=== PATIENT | female | born 1940 | race Caucasian/White ===

== ENCOUNTER 2016-11-29 13:51 | Emergency (ER) | payer OTHER, MEDICARE ==
[~2016-11-29 13:51] MED LIST: LEVOXYL50 MCG PO
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
[2016-11-29 15:26] VITALS: BP 113/61
== END 2016-11-29 15:28 ==
LOC: ERH 13:51
DX: S32.020A Wedge compression fracture of second lumbar vertebra, initial encounter for closed fracture (principal); J18.9 Pneumonia, unspecified organism; V43.62XA Car passenger injured in collision with other type car in traffic accident, initial encounter; Y93.9 Activity, unspecified; Y92.488 Other paved roadways as the place of occurrence of the external cause
CPT/HCPCS: 72080

== ENCOUNTER → 2017-09-02 | Day surgery (SDC) | payer OTHER, MEDICARE ==
[~2017-09-02] VITALS: Ht 154.9 cm; Wt 44.9 kg
[~2017-09-02] MED LIST changes: +BIO D MULSION FORTE OU; +COLACE100 M1 PO; +DIVALPROEX SOD250 M2 PO; +DUREZOL5 ML OU; +GOLYTELY SOLU4000 ML PO; +LACTULOSE20 GM/30 M PO; +LEVOTHYROXINE100 MC1 PO; +LEVOXYL88 MCG PO; +LINZESS290 MC1 PO; +MIRALAX17 G1 PO; +MIRTAZAPINE15 M2 PO; +OLANZAPINE5 M2 PO; +QUETIAPINE FUMA25 M1 PO; +SENNA8.6 M3 PO; +VITAMIN B-1250 MG PO; +VITAMIN B-650 M2 PO; +VITAMIN C500 M7 PO; +XALATAN2.5 ML OU; +XARELTO20 M2 PO; +ZYMAXID2.5 ML OU; +[UNRECOGNIZED DRUG - OTHER] PO
--- NOTE | 2017-09-02 13:59 | Operative Report ---
Operative/Inv Procedure Report Surgery Date: 09/02/17 Name of Procedure: Cataract extraction with intraocular lens implantation right eye Pre-Operative Diagnosis: Age-related cataract right eye Post-Operative Diagnosis: Same Estimated Blood Loss: none Surgeon/Health Club Manager: Ricky MYERS,Santiago Shannon Anesthesia: local monitored anesthesi Complications: None Operative/Procedure Note Note: Preoperatively the patient was noted to have 20/80 vision in the right eye . The risks, benefits, and alternatives to surgery were discussed at length with the patient. Informed consent was obtained. The patient was brought to the operating room where the right eye was prepped and draped in the normal sterile fashion. A speculum was placed on the right eye with good exposure. A stab incision was made using a paracentesis blade. Intracameral lidocaine was placed. Viscoelastic was used to form the anterior chamber. A clear corneal incision was made using keratome blade. A continuous curvilinear capsulorrhexis was made using a cystotome needle followed by Utrata forceps. There was no extension of the rhexis. Hydrodissection was performed using balanced salt solution. The cataract was removed using a stop and chop technique. Residual cortex was removed using coaxial irrigation and aspiration. The capsule was polished using irrigation and aspiration and the posterior capsule was cleaned using a balanced salt solution jet. There was no residual lens material inside the eye. The capsular bag was reformed using viscoelastic. An intraocular lens [id number] of power 12.5 was verified and confirmed. It was loaded into an injector and injected into the eye. The lens was placed entirely within the capsular bag. Viscoelastic was evacuated using irrigation and aspiration. The wounds were stromally hydrated and the eye filled to physiologic pressure using balanced salt solution. Intracameral cefuroxime was placed. Speculum was removed and a shield was placed on the eye. The patient was brought to the recovery area without incident. Instructions were given to follow-up the next day for routine postoperative care.
== END ==
LOC: STS 02:14
DX: H25.9 Unspecified age-related cataract (principal); E03.9 Hypothyroidism, unspecified; Z96.641 Presence of right artificial hip joint; Z79.01 Long term (current) use of anticoagulants
CPT/HCPCS: J2250; V2632

== ENCOUNTER 2017-09-03 16:20 | Inpatient (IN) | payer OTHER, MEDICARE ==
[~2017-09-03] VITALS: Ht 154.9 cm; Wt 43.1 kg
[~2017-09-03 16:20] MED LIST changes: -DUREZOL5 ML OU; -LEVOXYL88 MCG PO; -LINZESS290 MC1 PO; -MIRTAZAPINE15 M2 PO; -OLANZAPINE5 M2 PO; -XALATAN2.5 ML OU; -ZYMAXID2.5 ML OU
[2017-09-03] MEDS ORDERED: OLANZAPINE5 M2 PO (17:53)
[2017-09-03] MEDS ORDERED: LEVOXYL88 MCG PO (17:53)
[2017-09-03] MEDS ORDERED: MIRTAZAPINE15 M2 PO (17:54)
[2017-09-03] MEDS ORDERED: LINZESS290 MC1 PO (17:55)
[2017-09-03] MEDS ORDERED: XALATAN2.5 ML OU (17:55)
[2017-09-03] MEDS ORDERED: ZYMAXID2.5 ML OU (17:56)
[2017-09-03] MEDS ORDERED: DUREZOL5 ML OU (17:57)
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
--- NOTE | 2017-09-03 19:05 | RADIOLOGY REPORT ---
EXAMINATION: XR PORTABLE CHEST CLINICAL INFORMATION: Altered mental status. COMPARISON: Chest x-ray 05/07/2017 TECHNIQUE: Portable frontal view of the chest was obtained. 6:35 PM FINDINGS: Previously noted few small calcified nodules in the lungs consistent with granulomas again demonstrated. There is no acute abnormality. Lungs are clear. No pulmonary vascular congestion. There is no pleural effusion. The heart size is normal. The cardiac and mediastinal contours are normal. There are calcifications of the thoracic aorta. No acute osseous abnormality IMPRESSION: Unremarkable examination.
--- NOTE | 2017-09-03 19:16 | CT SCAN REPORT ---
EXAMINATION: CT HEAD WITHOUT CONTRAST CLINICAL INFORMATION: ICH. Mass. Altered metal status. COMPARISON: Brain MRI 05/12/2017. TECHNIQUE: Contiguous axial imaging was performed from the skull base to vertex without intravenous administration of contrast. DLP: 522 mGy-cm. FINDINGS: There is no intracranial hemorrhage, large infarction, or mass lesion. There is no extra-axial collection. There is severe confluent hypoattenuation in the bilateral cerebral white matter and within the central bo likely reflecting small vessel ischemic changes. There are chronic bilateral basal ganglia and thalamic lacunar infarcts. The paranasal sinuses are clear. The mastoids and middle ear cavities are clear. There are atherosclerotic calcification of the carotid siphons and vertebral arteries. There are staphylomas bilaterally as can be seen with high axial myopia. IMPRESSION: 1. No intracranial hemorrhage, large infarction, mass lesion or hydrocephalus. 2. Severe small vessel ischemic changes. 3. Old bilateral basal ganglia and thalamic lacunar infarcts.
[2017-09-03 19:56] LABS: ABSOLUTE BASOPHIL COUNT 0.1 /CUMM (0.0-0.2); ABSOLUTE EOSINOPHIL COUNT 0.2 /CUMM (0.0-0.7); ABSOLUTE GRANULOCYTE CT 5.1 /CUMM (1.4-6.5); ABSOLUTE LYMPH COUNT 2.5 /CUMM (1.2-3.4); ABSOLUTE MONOCYTE COUNT 0.7 /CUMM (0.10-0.60); BASOPHIL % 0.6 % (0.0-2.0); GRANULOCYTE % 59.9 % (42.2-75.2); HEMATOCRIT 36.8 % (37-47); MEAN CORPUSCULAR HGB 28.6 PG (27.0-31.0); MEAN CORPUSCULAR HGB CONC 33.5 G/DL (33.0-37.0); MEAN CORPUSCULAR VOLUME 85.1 FL (81.0-99.0); PLATELET COUNT 362 /CUMM (130-400); RBC DISTRIBUTION WIDTH 13.9 % (11.5-14.5); RED BLOOD CELL CT 4.33 /CUMM (4.20-5.40); WHITE BLOOD CELL COUNT 8.5 /CUMM (4.8-10.8)
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
--- NOTE | 2017-09-04 04:53 | RADIOLOGY REPORT ---
EXAMINATION: XR HAND, RIGHT CLINICAL INFORMATION: Right hand ecchymosis COMPARISON: 04/14/2010 TECHNIQUE: PA, lateral, and oblique views of the right hand. FINDINGS: No acute fracture or dislocation. Severe degenerative changes are seen at the first carpometacarpal joint with joint space narrowing, sclerosis, and osteophyte formation. Mild degenerative changes throughout the interphalangeal joints, particularly at the fifth digit distal interphalangeal joint. These findings have progressed since the previous study. IMPRESSION: No acute osseous abnormality. Degenerative changes, most severe at the first carpometacarpal joint.
--- NOTE | 2017-09-04 12:00 | ED PSYCH CRISIS CONSULTATION ---
See Addendum Crisis Consult Basic Assessment Date of Consult: 09/04/17 Responsible Person/Accompanied By: Brought in by her Maciel Culver Insurance Authorization: Insurance #1: Insurance name: MEDICARE A Policy number: [id number] ED Provider: Patient's ED Provider: Sravan Hall Primary Care Physician: Patient's PCP: Nicki MYERS,Mike Centeno PCP's Current Psychiatrist: Dr. Tito Sam MD ([facility]) [place], [place] Chief Complaint: Altered Mental Status Patient's Quote: "I felt like I couldnt put a sentence together." Present Illness: Patient is a 77 year female who was brought in to [facility] emergency department by her with complaints of constipation, verbal unresponsiveness, altered mental status, increased anxiety, and noncompliance with medical / psychiatric treatment. reports patient refused to allow him to administer post-surgical eye drops (she underwent cataract removal a few days ago.) Also, patient's reports she locked herself into a bedroom and might have either frozen in a panic response or been physically unable to open the door. Patient and her indicate she does not have a significant psychiatric history. Patient's son at age 19 from a motorcycle accident. Patient does report an episode ~1994 where she experienced delirium but attributes that to her Synthroid thyroid medication. Patient also had altered mental status in April 2017 when she had delusions, verbal aggression, and paranoia. One psychotic theme at this time was related to her food with patient concerned food was infected. Patient had tried a diet of only fruits and vegetables for weeks and when brought to the hospital had hyponatremia. Consulting [place] psychiatric [employer] assessed patient with unspecified bipolar disorder, "delirium due to hyponatremia, acute, agitated" and a rule-out for "unspecified neurocognitive disorder." Patient was transferred and admitted for inpatient geripsychiatry at [facility]. While she was inpatient, she suffered a fall and broke her hip. Patient subsequently went to [facility] for surgery and [facility]. Now, patient is ambulatory without assistance. Patient's reports for the past month, patient has been "crying everyday on the couch." Also, reports patient sometimes freezes and becomes unresponsive. There appears to be no significant stressors or life events which precipitated this. Patient has the support of her daughter and has a grandson as well as 13 great-grandchildren. Patient was referred to see a psychiatrist by her primary care physician Dr. Caceres. Patient sought treatment with [facility] with psychiatrist Dr. Sam. This song writer spoke to Dr. Sam by phone. Dr. Sam reports he prescribed Remeron but discontinued it due to lack of therapeutic effect. Patient was then prescribed Zyprexa but patient and report she only took ~[address] Sam states his "suspicion is she is psychotic." Dr. Sam is recommending further evaluation and an inpatient geripsychiatric admission. Dr. Sam reports he has concerns patient is not eating properly and may have insomnia. Patient's observed patient is more verbal today. A glass or mirror inspector attempted to evaluate last night but patient was not able to respond to questions. Today, patient presents alert and oriented to person, situation and time. Patient states she felt "like I cant put together a sentence." Her asserts her psychotropic medication may have been contributing to her presentation. Patient also stated feeling depersonalized "I felt like the world was over there...and I was here." Patient indicates feeling paralyzed stating "I was aware I couldn't make the body do what the mind wanted to do." Patient reports feeling anxious and experiencing panic attacks referring to "panicky things." Patient indicated experiencing suicidal ideation stating " I was thinking of getting rid of myself." Patient denies any specific past intent or plan and there is no history of past suicide attempts. Patient asserts she refused to take her post-operative eye drop medication because she was concerned about the protocol and whether she would be administering it correctly. Her asserts they saw the extension service specialist in charge yesterday and received clear instructions. Her reports it has been difficult to encourage patient to attend to basic activities of daily living stating "I cant get her to do anything." Patient's urine toxicology screening is only positive for benzodiazepines. Patient was medically cleared by attending ED physician Dr. Coleman. Patient's Address: [address] [place] [address] Who Do You Live With? Spouse Family/Informants Interviewed: - Maciel Culver Allergies - Coded Allergies: NO KNOWN ALLERGIES (06/04/13) Current Medications - Scheduled Medications Difluprednate (Durezol) 0.05 % DROPS 1 GTT OU 4XDAILY BOTH EYES #5 (Reported) Entered as Reported by Ngoc Vyas on 09/03/171756 Gatifloxacin (Zymaxid) 0.5 % DROPS 1 GTT OU 4 TIMES/DAY BOTH EYES #2 ( Reported) Entered as Reported by Ngoc Vyas on 09/03/171755 Latanoprost (Xalatan) 0.005 % DROPS 1 GTT OU QPM BOTH EYES #2 (Reported) Entered as Reported by Ngoc Vyas on 09/03/171754 Levothyroxine Sodium (Levoxyl) 88 MCG TABLET 1 TAB PO DAILY THYROID #30 ( Reported) Entered as Reported by Ngoc Vyas on 09/03/17 175 Levothyroxine Sodium 100 MCG TABLET 1 TAB PO DAILY THYROID #30 CAP Prescribed by Jonas Carranza MD on 07/01/17 Linaclotide (Linzess) 290 MCG CAPSULE 1 CAP PO DAILY GI (Reported) Entered as Reported by Ngoc Vyas on 09/03/171754 Mirtazapine 15 MG TABLET 1 TAB PO QPM ANXIETY/SLEEP #30 (Reported) Entered as Reported by Ngoc Vyas on 09/03/17 175 Olanzapine 5 MG TABLET 1 TAB PO BID MENTAL HEALTH #60 (Reported) Entered as Reported by Ngoc Vyas on 09/03/171752 Polyethylene Glycol 3350 (Miralax) 17 GRAM POWD.PACK 1 PAC PO DAILY CONSTIPATION #2 PAC Prescribed by Jonas Carranza MD on 07/01/17 Last Taken: At an unknown date and time Pyridoxine HCl (Vitamin B-6) 50 MG TABLET 1 TAB PO DAILY SUPPLEMENT (Reported ) Entered as Reported by Ngoc Vyas on 05/06/172306 Last Taken: At an unknown date and time Rivaroxaban (Xarelto) 20 MG TABLET 1 TAB PO QPM DVT #30 TAB (Reported) Entered as Reported by Cali Farooq on 06/30/17227 Sennosides (Senna) 8.6 MG TABLET 2 TAB PO BID constipation #100 CAP Prescribed by Jonas Carranza MD on 07/01/17 Last Taken: At an unknown date and time Thiamine HCl (Vitamin B-1) (Unknown Strength) TABLET (Unknown Dose) PO AD SUPPLEMENT (Reported) Entered as Reported by Ngoc Vyas on 05/06/17 1648 Last Taken: Unknown Dose at an unknown date and time Laboratory Results: Laboratory Tests 09/03/172009: Urine Opiates Screen < 100.00, Methadone Screen 44, Barbiturate Screen < 60, Ur Phencyclidine Scrn < 6.00, Amphetamines Screen < 100, U Benzodiazepines Scrn 615 H, Urine Cocaine Screen < 50, Urine Cannabis Screen < 5.00, Urine Color YEL, Urine Clarity CLEAR, Urine pH 7.5, Ur Specific [place] 1.010, Urine Protein NEG, Urine Ketones TRACE H, Urine Nitrite NEG, Urine Bilirubin NEG, Urine Urobilinogen 0.2, Ur Leukocyte Esterase TRACE H, Ur Microscopic SEDIMENT EXAMINED, Urine RBC RARE, Urine WBC 3-5 H, Ur Epithelial Cells FEW, Urine Bacteria FEW H, Hyaline Casts RARE H, Urine Mucus RARE, Urine Hemoglobin NEG, Urine Glucose NEG 09/03/171944: Anion Gap 15, Estimated GFR > 60, BUN/Creatinine Ratio 23.3, Glucose 90, Calcium 10.1, Total Bilirubin 0.3, AST 22, ALT 34, Alkaline Phosphatase 107, Troponin I 0.01, Total Protein 6.8, Albumin 4.1, Globulin 2.7, Albumin/Globulin Ratio 1.5, TSH &T3 &Free T4 Intrp 1.550, CBC w Diff NO MAN DIFF REQ, RBC 4.33, MCV 85.1, MCH 28.6, RDW 13.9, MPV 7.0 L, Gran % 59.9, Lymphocytes % 29.5, Monocytes % 8.0 , Eosinophils % 2.0, Basophils % 0.6, Absolute Granulocytes 5.1, Absolute Lymphocytes 2.5, Absolute Monocytes 0.7 H, Absolute Eosinophils 0.2, Absolute Basophils 0.1, PUBS MCHC 33.5, Serum Alcohol < 10.0 Past History Past Medical History Any Pertinent Medical History? 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 Sam Aug 2017 Reason for Treatment Depression, anxiety, unspecified psychosis Dates of Treatment Jun 2017 to present Response to Treatment Unclear Diagnosis by History: None Substance Use/Abuse History Drug Use/Abuse Substances Used/Abused No First Use - Last Used - How much used/taken - How often - For how long - Route of use - Substance Abuse Treatment Substance Abuse Treatment Past Substance Abuse [place] No Inpatient Treatment No Outpatient Treatment No Location of Treatment - Dates of Treatment - Response to Treatment - Comments: - Current Mental Status Mental Status Orientation: Person, Place, Situation Affect: Depressed, Flat, Sad Speech: Delayed, Soft Neuro-vegetative: Anhedonia, Loss of Interest Appearance Appearance- Dress/Hygiene: Patient was observed to be seated in room chair with hospital attire and sneaker shoes. No remarkable features observed. Hair is well-kempt and no other grooming / hygiene issues evident. Behaviors Thought Process: Logical/Rational Thought Content: WNL Memory: WNL Insight: Fair SI/HI Risk Assessment Past Suicidal Ideation/Attempts Yes Current Suicidal Ideation/Att Yes (suicidal ideation- no plan) Past Homicidal Ideation/Att: No Current Homicidal Ideation/Attempts No Degree of Intent: Thoughts/No Intent Danger To: Self Gravely Disabled: Inability, Lack of Insight Risk Factors: age (under 24/over 65), high anxiety/distress, SA/MH hospitalized, lack of outcome concern PTSD Checklist PTSD Done? pt unable to participate ED Management Sitter: Yes Restraints: No (Patient calm & cooperative) DSM5/PS Stressors/Medical Prob Diagnosis' (DSM 5, Stressors, Medical): F05 Delirium due to another medical condition F32.9 Unspecified depressive disorder F41.9 Unspecified anxiety disorder Rule-out for R41.9 Unspecified neurocognitive disorder Current GAF: 20 Departure Disposition Psych Medical Clearance Date: 09/04/17 Medically Cleared at: 1030 Time Started: 1030 Time Ended: 1130 Psychiatrist Consulted: Dr. Latia Lambert MD PhD Date Disposition Established: 09/04/17 Time Disposition Established: 1400 Plan for Disposition - Modality: Medical Admission Facility: [facility] Rationale for Disposition: Crisis evaluation assessed with Dr. Lambert who also evaluated patient. Dr. Lambert reviewed crisis disposition with attending ED physician Dr. Green- patient is referred for a medical admission in consideration of further evaluation for symptoms consistent with a delirium. Referrals Nicki MYERS,Mike Centeno (PCP/Family)
--- NOTE | 2017-09-04 14:36 | History & Physical ---
Elvira Mariee MD 09/04/17 1435: General Information and HPI MD Statement: I have seen and personally examined CHRISTINE CULVER and documented this H&P. The patient is a 77 year old F who presented with a patient stated chief complaint of [altered mentation]. Source of Information: patient, family, EMS Exam Limitations: unable to give history History of Present Illness: Patient is a 77-year-old female with past medical history significant for hip surgery, DVT, hypothyroidism was brought to [facility] by her due to not being herself for the past 2 days. Patient's mental health has been declining for the past few months. She was referred to psychiatrist by her primary care physician requiring inpatient admission for psychosis. She was started on Rozerem and subsequently converted to olanzapine. Since patient has been acting not like herself. She has been having panic attacks and remain seated in the couch throughout the day reporting the world is going to end. 2 days ago patient did have cataract surgery in the hospital for which she received mild sedation. Subsequently her mental status further worsened. In addition to this patient feels actively suicidal for the past few weeks. Upon further inquiring about plan - not sure about it. She had constipation at baseline and she didn't have a bowel movement for the past 2 weeks. She is unable to sleep tonight usually starts seeping at 6 AM in the morning. Family history significant for grandmother with psychosis She never smoked/never had alcohol/no drug Surgical history significant for recent hip surgery complicated with deep vein thrombosis. Recent cataract surgery Allergies/Medications Allergies: Coded Allergies: NO KNOWN ALLERGIES (06/04/13) Home Med list Difluprednate (Durezol) 0.05 % DROPS 1 GTT OU 4XDAILY BOTH EYES (Reported) Gatifloxacin (Zymaxid) 0.5 % DROPS 1 GTT OU 4 TIMES/DAY BOTH EYES (Reported) Latanoprost (Xalatan) 0.005 % DROPS 1 GTT OU QPM BOTH EYES (Reported) Levothyroxine Sodium (Levoxyl) 88 MCG TABLET 1 TAB PO DAILY THYROID (Reported ) Levothyroxine Sodium 100 MCG TABLET 1 TAB PO DAILY THYROID Linaclotide (Linzess) 290 MCG CAPSULE 1 CAP PO DAILY GI (Reported) Mirtazapine 15 MG TABLET 1 TAB PO QPM ANXIETY/SLEEP (Reported) Olanzapine 5 MG TABLET 1 TAB PO BID MENTAL HEALTH (Reported) Polyethylene Glycol 3350 (Miralax) 17 GRAM POWD.PACK 1 PAC PO DAILY CONSTIPATION dissolve in water Pyridoxine HCl (Vitamin B-6) 50 MG TABLET 1 TAB PO DAILY SUPPLEMENT (Reported ) Rivaroxaban (Xarelto) 20 MG TABLET 1 TAB PO QPM DVT (Reported) with food Sennosides (Senna) 8.6 MG TABLET 2 TAB PO BID constipation Thiamine HCl (Vitamin B-1) (Unknown Strength) TABLET (Unknown Dose) PO AD SUPPLEMENT (Reported) Past History Travel History Traveled to [place] past 21 day No Medical History Any Pertinent Medical History? 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 Ambulation: independent IADLs Independent: shopping, housework, finances, food prep, telephone, transportation , medication admin. Review of Systems Review of Systems Constitutional: Reports: see HPI. GI: Reports: constipation. Genitourinary: Reports: no symptoms. Exam & Diagnostic Data Last 24 Hrs of Vital Signs/I&O Vital Signs Date Time Temp Pulse Resp B/P B/P Pulse O2 O2 Flow FiO2 Mean Ox Delivery Rate 09/04 1424 97.9 80 20 178/80 98 Room Air 09/04 1152 98.0 78 20 134/69 98 Room Air 09/04 0936 97.9 76 20 137/76 98 Room Air 09/04 0445 98.9 73 22 140/77 98 09/03 2230 97.2 72 22 142/78 98 09/03 1913 97.1 80 15 130/88 98 Room Air Room Air 09/03 1658 97.2 94 18 174/67 95 Room Air Intake & Output 09/04 1600 09/04 0800 09/04 0000 Intake Total Output Total Balance Patient 43.091 kg Weight Weight Reported by Patient Measurement Method Physical Exam General Appearance Alert, Oriented X3, Cooperative, No Acute Distress Skin No Rashes, No Breakdown Skin Temp/Moisture Exam: Warm/Dry HEENT Atraumatic, PERRLA, EOMI Neck Supple, No JVD Cardiovascular Normal S1, Normal S2 Lungs Clear to Auscultation, Normal Air Movement Abdomen Normal Bowel Sounds, Soft, No Tenderness Neurological Normal Speech, Strength at 5/5 X4 Ext, Normal Tone Extremities No Clubbing, No Cyanosis, No Edema Vascular Normal Pulses, Pulses Symmetrical Last 24 Hrs of Labs/James: Laboratory Tests 09/03/172009: Urine Opiates Screen < 100.00, Methadone Screen 44, Barbiturate Screen < 60, Ur Phencyclidine Scrn < 6.00, Amphetamines Screen < 100, U Benzodiazepines Scrn 615 H, Urine Cocaine Screen < 50, Urine Cannabis Screen < 5.00, Urine Color YEL, Urine Clarity CLEAR, Urine pH 7.5, Ur Specific [place] 1.010, Urine Protein NEG, Urine Ketones TRACE H, Urine Nitrite NEG, Urine Bilirubin NEG, Urine Urobilinogen 0.2, Ur Leukocyte Esterase TRACE H, Ur Microscopic SEDIMENT EXAMINED, Urine RBC RARE, Urine WBC 3-5 H, Ur Epithelial Cells FEW, Urine Bacteria FEW H, Hyaline Casts RARE H, Urine Mucus RARE, Urine Hemoglobin NEG, Urine Glucose NEG 09/03/171944: Anion Gap 15, Estimated GFR > 60, BUN/Creatinine Ratio 23.3, Glucose 90, Calcium 10.1, Total Bilirubin 0.3, AST 22, ALT 34, Alkaline Phosphatase 107, Troponin I 0.01, Total Protein 6.8, Albumin 4.1, Globulin 2.7, Albumin/Globulin Ratio 1.5, TSH &T3 &Free T4 Intrp 1.550, CBC w Diff NO MAN DIFF REQ, RBC 4.33, MCV 85.1, MCH 28.6, RDW 13.9, MPV 7.0 L, Gran % 59.9, Lymphocytes % 29.5, Monocytes % 8.0 , Eosinophils % 2.0, Basophils % 0.6, Absolute Granulocytes 5.1, Absolute Lymphocytes 2.5, Absolute Monocytes 0.7 H, Absolute Eosinophils 0.2, Absolute Basophils 0.1, PUBS MCHC 33.5, Serum Alcohol < 10.0 Microbiology 09/04 1424 URINE ROUT: Urine Culture - ORD Diagnostic Data EKG Results NSR Assessment/Plan Assessment: Patient is a 77-year-old female with significant history of hypothyroidism, recent onset psychotic behavior presented with acute worsening of her mental status in the setting of recent surgery, constipation. She was recently started on antipsychotic therapy. Past history is notable for acute onset delirium then her son passed out suddenly in an MVA. Vital signs and physical examination are unremarkable. Labs are significant for mild hypovolemic hyponatremia, posterior UA for leukocyte esterase and crystals. Imaging with head CT ruled out acute intracranial pathology. Chest x-ray is unremarkable. Differentials Acute delirium in the setting of dehydration, constipation, sedation for cataract surgery, probable UTI Problem list Acute delirium Active suicidal ideation Hyponatremia Positive UA Acute delirium Probably secondary to hyponatremia from dehydration, constipation. Started patient on normal saline. We'll send for urine culture, obtain renal ultrasound tomorrow keeping patient nothing by mouth tonight. Started on MiraLAX, Dulcolax suppository. If doesn't help will administer Fleet enema tomorrow. We will hold off antibiotics pending urine culture. Active suicidal ideation Probably secondary to adverse effect of antipsychotics. She was recently started on olanzapine. Psychiatric evaluation/consultation. Patient can't leave AMA. History of hypothyroidism Continue levothyroxine 188 g daily Recent cataract surgery Continue glaucoma/postsurgical eyedrops Recent psychosis Continue on olanzapine/mirtazapine 15 mg at bedtime DVT prophylaxis Continued Xarelto CODE STATUS Full code As Ranked By This Provider Problem List: 1. Delirium 2. Decreased appetite 3. Insomnia 4. Altered mental status Qualifiers Altered mental status type: unspecified Qualified Code: R41.82 - Altered mental status, unspecified 5. Acute delirium Core Measures/Misc (05/02) Acute Coronary Syndrome ACS Diagnosis: No Congestive Heart Failure Congestive Heart Failure Diagnosis No Cerebrovascular Accident CVA/TIA Diagnosis: No VTE (View Protocol) VTE Risk Factors Acute Medical Illness No Mechanical VTE Prophylaxis d/t N/A MechProphylax Ordered No VTE Pharm Prophylaxis d/t NA PharmProphylax ordered Sepsis (View protocol) Sepsis Present: No Kyle Guillen 09/04/17 1527: Attending MD Review Statement Attending Statement Attending MD Statement: examined this patient, discuss w/resident/PA/DIRECTOR OF CORPORATE REAL ESTATE, agreed w/resident/PA/DIRECTOR OF CORPORATE REAL ESTATE, discussed with family, reviewed EMR data (avail), discussed with nursing, discussed with case mgmt, reviewed images, amended to note Attending Assessment/Plan: Ms. Culver is 77-year-old female with past medical history significant for hypothyroidism who presented to ED with chief complaint of altered mental status and was found to be hyponatremic. Patient found to have behavoiral changes and suicidal ideations on arrival to ER. Patient was evaluated by shady in ER and requested admission to medical service for working diagnosis of altered mental status and mild hyponatremia in dementia. Patient TFTs within normal limits on levothyroxine. Send for urine lytes, repeat urinalysis and urine culture, obtain renal USG. MRI brain recently in april 2017 suggestive of advanced chronic microangiopathy. Constipation no bowel movement for past few days. Monitor bowel movement. f/u shady. gi/dvt prophyalxis full code.
[2017-09-04 18:08] VITALS: BP 142/62
[2017-09-05 07:02] VITALS: BP 170/85
[2017-09-05 08:23] LABS: ABSOLUTE BASOPHIL COUNT 0 /CUMM (0.0-0.2); ABSOLUTE EOSINOPHIL COUNT 0.1 /CUMM (0.0-0.7); ABSOLUTE GRANULOCYTE CT 4.1 /CUMM (1.4-6.5); ABSOLUTE LYMPH COUNT 1.3 /CUMM (1.2-3.4); ABSOLUTE MONOCYTE COUNT 0.5 /CUMM (0.10-0.60); BASOPHIL % 0.7 % (0.0-2.0); EOSINOPHIL % 2.4 % (0-5); GRANULOCYTE % 66.9 % (42.2-75.2); MEAN CORPUSCULAR HGB 28.7 PG (27.0-31.0); MEAN CORPUSCULAR HGB CONC 33.6 G/DL (33.0-37.0); MEAN CORPUSCULAR VOLUME 85.3 FL (81.0-99.0); MEAN PLATELET VOLUME 7.7 FL (7.4-10.4); PLATELET COUNT 346 /CUMM (130-400); RBC DISTRIBUTION WIDTH 13.8 % (11.5-14.5); RED BLOOD CELL CT 3.99 /CUMM (4.20-5.40); WHITE BLOOD CELL COUNT 6.1 /CUMM (4.8-10.8)
--- NOTE | 2017-09-05 09:42 | Cons- Psychiatry ---
Psychiatric Consult Date of Consult: 09/05/17 Reason for Consult: Psychosis with acute delirium, reqeusted by Dr Grace, attending Dr Wright History of Present Illness: Per EDM Crisis Consultation 09/04/2016: "Patient is a 77 year female who was brought in to [facility] emergency department by her with complaints of constipation, verbal unresponsiveness, altered mental status, increased anxiety, and noncompliance with medical / psychiatric treatment. reports patient refused to allow him to administer post-surgical eye drops (she underwent cataract removal a few days ago.) Also, patient's reports she locked herself into a bedroom and might have either frozen in a panic response or been physically unable to open the door. Patient and her indicate she does not have a significant psychiatric history. Patient's son at age 19 from a motorcycle accident. Patient does report an episode ~1994 where she experienced delirium but attributes that to her Synthroid thyroid medication. Patient also had altered mental status in April 2017 when she had delusions, verbal aggression, and paranoia. One psychotic theme at this time was related to her food with patient concerned food was infected. Patient had tried a diet of only fruits and vegetables for weeks and when brought to the hospital had hyponatremia. Consulting [facility] psychiatric VENETIAN BLIND TAPE CUTTER assessed patient with unspecified bipolar disorder, "delirium due to hyponatremia, acute, agitated" and a rule-out for "unspecified neurocognitive disorder." Patient was transferred and admitted for inpatient geripsychiatry at [facility]. While she was inpatient, she suffered a fall and broke her hip. Patient subsequently went to [facility] for surgery and [facility]. Now, patient is ambulatory without assistance. Patient's reports for the past month, patient has been "crying everyday on the couch." Also, reports patient sometimes freezes and becomes unresponsive. There appears to be no significant stressors or life events which precipitated this. Patient has the support of her daughter and has a grandson as well as 13 great-grandchildren. Patient was referred to see a psychiatrist by her primary care physician Dr. Caceres. Patient sought treatment with [facility] with psychiatrist Dr. Sam. This marketing writer spoke to Dr. Sam by phone. Dr. Sam reports he prescribed Remeron but discontinued it due to lack of therapeutic effect. Patient was then prescribed Zyprexa but patient and report she only took ~[address] Sam states his "suspicion is she is psychotic." Dr. Sam is recommending further evaluation and an inpatient geripsychiatric admission. Dr. Sam reports he has concerns patient is not eating properly and may have insomnia. Patient's observed patient is more verbal today. A dental hygienist attempted to evaluate last night but patient was not able to respond to questions. Today, patient presents alert and oriented to person, situation and time. Patient states she felt "like I cant put together a sentence." Her asserts her psychotropic medication may have been contributing to her presentation. Patient also stated feeling depersonalized "I felt like the world was over there...and I was here." Patient indicates feeling paralyzed stating "I was aware I couldn't make the body do what the mind wanted to do." Patient reports feeling anxious and experiencing panic attacks referring to "panicky things." Patient indicated experiencing suicidal ideation stating " I was thinking of getting rid of myself." Patient denies any specific past intent or plan and there is no history of past suicide attempts. Patient asserts she refused to take her post-operative eye drop medication because she was concerned about the protocol and whether she would be administering it correctly. Her asserts they saw the director of strategy & mobile yesterday and received clear instructions. Her reports it has been difficult to encourage patient to attend to basic activities of daily living stating "I cant get her to do anything." Patient's urine toxicology screening is only positive for benzodiazepines. Patient was medically cleared by attending ED physician Dr. Coleman." Additionally on examination by marketing writer: "Pt is 77 yo MWF without significant psychiatric hx until several months ago. At this time, pt presents to ED with 3 week decompensation of increased agitation, confusion, restlessness, worsening ADLs. This is in the context of similar presentation in May-Jun when she has UTI and hyponatremia and paranoia about food, after which [facility], suffered a hip fracture 3 days later and then went to [facility] rehab. In Jul, she returned home and was at her previous cognitive level of functioning ( independent in ADL's, cooking, no signs of dementia per ). Over the last month, pt has been increasingly confused and agitated, feeling "depersonalized...like Im outside the world, like I cant put a sentence together." reports twitching and freezing episodes. It took him 2 hours to retrieve her from behind a locked door today becuase she "froze" and was unable to unlock it. reports periods of mutism. Pt states "I cant make my body do what my mind wants it to do." Pt has been crying almost daily for the last several weeks. On 08/31/2016, pt was started on zyprexa 5 mg but thought she worsened with this. She sees Dr Kilo Sam in [place] (psychiatrist) and Dr Mirtha Caceres (data entry processor, ). Yesterday, pt was taken to eye clinic for cataract surgery and received versed. Pt has been refusing medications (normally adherent), refusing eyedrops per ophthalomology, and agitated. reports that "I need to be with her contantly" d/t confusion. reports that pt has been constipated without BM for two weeks, even though she is eating. Also reports urinary incontinence over the last 3 weeks, which is unusual for her. Pt denies abd pain, or urinary sxs but agrees that she is having "accidents." feels she is acting similarly to when she had a UTI several months ago, and also fears that her meds are "too high." " Allergies: Coded Allergies: NO KNOWN ALLERGIES (06/04/13) Current Medications: Current Medications Sig/Donaldo Start time Last Medication Dose Route Stop Time Status Admin Bisacodyl 10 MG ONCE ONE 09/04 1615 DC 09/04 TX 09/04 1616 2100 Docusate Sodium 100 MG DAILY 09/04 1611 AC 09/05 PO 0853 Gatifloxacin 1 GTT 0800,1200,1600,2000 09/04 1600 AC 09/05 OPH 0851 Gatifloxacin 1 GTT FOUR TIMES A DAY 09/04 1400 DC 09/04 OPH 1230 Heparin Sodium 0 .STK-MED ONE 09/04 1641 DC (Porcine) .ROUTE Heparin Sodium 5,000 UNIT Q8 09/04 1442 AC 09/05 (Porcine) SC 0617 Latanoprost 1 GTT AT BEDTIME 09/04 2200 AC 09/04 OPH 2232 Latanoprost 1 GTT QPM 09/04 2200 DC OPH Levothyroxine Sodium 0.088 MG DAILY AC 09/05 0700 AC 09/05 PO 0617 Levothyroxine Sodium 0.1 MG DAILY AC 09/05 0700 AC 09/05 PO 0617 Mirtazapine 15 MG QPM 09/04 2200 AC 09/04 PO 2230 Moxifloxacin HCl 1 GTT TID 09/04 2200 AC 09/05 OPH 0855 Olanzapine 5 MG BID 09/04 2200 AC 09/05 PO 0854 Polyethylene Glycol 17 GM DAILY 09/04 1611 AC PO Potassium Chloride 20 MEQ Q20H 09/04 1500 DC Sodium Chloride 1,000 ML IV Rivaroxaban 20 MG DAILY 09/05 1000 AC 09/05 PO 0854 Senna/Docusate Sodium 2 TAB DAILY PRN 09/04 1615 AC PO Sodium Chloride 1,000 ML Q20H 09/04 1845 AC 09/04 IV 09/05 1444 1839 Thiamine HCl 100 MG DAILY 09/05 1000 AC 09/05 PO 0854 Past History Past Medical History Any Pertinent Medical History? unobtainable Neurological: delerium EENT: cataracts Cardiovascular: NONE Respiratory: PNA Gastrointestinal: NONE Hepatic: NONE Renal: NONE Musculoskeletal: NONE Psychiatric: anxiety, bipolar disease, depression Endocrine: HYPOTHYROID Blood Disorders: NONE Cancer(s): NONE LATEX FOAM WORKER/Reproductive: NONE Past Surgical History Surgical History: PARTIAL R HIP Psychosocial History Strengths/Capabilities: Supportive family, high functioning at baseline Physical Limitations (Interventions): Current confusion Psychiatric Treatment History Psych Treatment Psychiatric Treatment Yes Inpatient Treatment Yes Outpatient Treatment Yes Location of Treatment [facility] Jun 2017, outpatient psychiatry Dr. Sam Aug 2017 Reason for Treatment Depression, anxiety, unspecified psychosis Dates of Treatment Jun 2017 to present Response to Treatment Unclear Diagnosis: None Risk Factors: age (under 24/over 65), high anxiety/distress, SA/MH hospitalized, lack of outcome concern Substance Use/Abuse History Drug Use/Abuse Substances Used/Abused No First Use - Last Used - How much used/taken - How often - For how long - Route of use - Substance Abuse Treatment Substance Abuse Treatment Past Substance Abuse TX No Inpatient Treatment No Outpatient Treatment No Location of Treatment - Dates of Treatment - Response to Treatment - Assessment/Plan Mental Status Orientation: Person, place, month/yr only Affect: Anxious Speech: Delayed Neuro-vegetative: Concentration Poor, Energy Increased, Hyperactivity, Sleep Disturbance Mental Status Exam: Gen: alert, oriented to self and place, eating l;unch in bed slowly, confused, anxious, fidgeting with blanket. Speech: soft, low, halting Motor: mild tremor, no tics or other abnormal movement, hypomotoric Mood: "I think this day is wrong...it was a time that I already had been." Affect: worried, congruent, nonlabile at this time, poorly related TP: disorganized, preserverative on time TC: denies SI/HI/AVH/SIB Cog: Memory, concentration and attention impared, but on more specific testing per exam by izabela marketing writer yesterday: MMSE 26/30 (-3 orientation, -1 delayed recall); however preformance on test was very slow, but mostly accurate. Clock face diminutive "grandfather clock" with lines but too small to include numbers. Sales Representative Sales Manager mindi venetie ira and pt able to correctly place numbers (12-6-9-3 and then filled in intermediary) and correctly place hands at "quarter to 4." Pt able to follow Luria's test when marketing writer performed but got frustrated by recognizing that she was doing it incorrectly when independent. Judgement: poor Insight: poor Lab Results: Laboratory Tests 09/05/17 0654: CBC w Diff NO MAN DIFF REQ, RBC 3.99 L, MCV 85.3, MCH 28.7, RDW 13.8, MPV 7.7, Gran % 66.9, Lymphocytes % 21.5, Monocytes % 8.5, Eosinophils % 2.4, Basophils % 0.7, Absolute Granulocytes 4.1, Absolute Lymphocytes 1.3, Absolute Monocytes 0.5 , Absolute Eosinophils 0.1, Absolute Basophils 0, PUBS MCHC 33.6 09/04/17 1740: Urinalysis LIGHT H, Urine Color YEL, Urine Clarity CLEAR, Urine pH 6.0, Ur Specific Demotte 1.025, Urine Protein NEG, Urine Ketones TRACE H, Urine Nitrite NEG, Urine Bilirubin NEG, Urine Urobilinogen 0.2, Ur Leukocyte Esterase TRACE H , Ur Microscopic SEDIMENT EXAMINED, Urine WBC 3-5 H, Ur Epithelial Cells FEW, Urine Crystals 3+ CA OX H, Urine Hemoglobin NEG, Urine Glucose NEG 09/03/172009: Urine Osmolality 370 09/03/172009: Urine Opiates Screen < 100.00, Methadone Screen 44, Barbiturate Screen < 60, Ur Phencyclidine Scrn < 6.00, Amphetamines Screen < 100, U Benzodiazepines Scrn 615 H, Urine Cocaine Screen < 50, Urine Cannabis Screen < 5.00, Urine Color YEL, Urine Clarity CLEAR, Urine pH 7.5, Ur Specific Demotte 1.010, Urine Protein NEG, Urine Ketones TRACE H, Urine Nitrite NEG, Urine Bilirubin NEG, Urine Urobilinogen 0.2, Ur Leukocyte Esterase TRACE H, Ur Microscopic SEDIMENT EXAMINED, Urine RBC RARE, Urine WBC 3-5 H, Ur Epithelial Cells FEW, Urine Bacteria FEW H, Hyaline Casts RARE H, Urine Mucus RARE, Urine Hemoglobin NEG, Urine Glucose NEG 09/03/171944: Anion Gap 15, Estimated GFR > 60, BUN/Creatinine Ratio 23.3, Glucose 90, Serum Osmolality 272 L, Calcium 10.1, Total Bilirubin 0.3, AST 22, ALT 34, Alkaline Phosphatase 107, Troponin I 0.01, Total Protein 6.8, Albumin 4.1, Globulin 2.7, Albumin/Globulin Ratio 1.5, TSH &T3 &Free T4 Intrp 1.550, CBC w Diff NO MAN DIFF REQ, RBC 4.33, MCV 85.1, MCH 28.6, RDW 13.9, MPV 7.0 L, Gran % 59.9, Lymphocytes % 29.5, Monocytes % 8.0, Eosinophils % 2.0, Basophils % 0.6, Absolute Granulocytes 5.1, Absolute Lymphocytes 2.5, Absolute Monocytes 0.7 H, Absolute Eosinophils 0.2, Absolute Basophils 0.1, PUBS MCHC 33.5, Serum Alcohol < 10.0 Diffential Diagnosis: Delirium (multiple possible etiologies see Impression for details), dementia ( less likely due to rapidity of decompensation) Impression: 77 yo MWF with no formal psych hx prior to one previous episode of delirium last Oct with UTI and hyponatremia, presenting to ED with similar sxs of confusion, agitation, depersonalization and "freezing" and twitching. At time time, would presume delirium since pts has been functioning at good baseline in Dec with rapid decompensation over the last 3 weeks in the context of urinary incontenence, constipation, med changes and medical interventions. Discussed with treatment team this am, pt continues to be confused but not agitated. On exam today, pt's states she is talking more to marketing writer than she had so far all day, she has been irritable but not agitated, "unhappy with everything. " Pt more confused than yesterday, upset about feeling time is wrong. Provisional Treatment Plan: -Should rule out medical causes of deliurim with full workup to include optimization of lytes (Na 132) and bivalents with slow normalization of sodium to avoid osmotic demyelination syndrome. -search for and treat any sources of infection (UTI, bowel) -reduction of polypharmacy as much as indicated with slow restart of necessary meds once stabilized -Would consider neuro consult d/t word-finding issues, "freezing" and twitching if pt does not quickly reconstitute, no current focal signs. -Recent CToH neg, and pt had MRI last year, but consider repeat if indicated. -At pt's advanced age, would lower antipsychotics as much as tolerated, avoid benzos and anticholiergics. -recc full psych labs (folate, B12, RPR/VDRL), TSH wnl. -frequently reorient pt and maintain appropriate sleep/wake cycle (lights on in day, off at night, open blinds in day, reorient to person and plan with each intervention). -Pt should not leave AMA and at this time does not have capacity for medical decision-making, should refer to surrogate decision maker () or activate medical proxy, if available. -spoke with [facility] for [facility] where she has appt on 09/07/2017 at 10:30; notified that she is currently inpatient and this will need to rescheduled in dispo planning Psychiatry consult team to follow. Please feel free to contact with additonal questions.
--- NOTE | 2017-09-05 10:06 | PN- Housestaff ---
Jaylene MYERS,Elvira 09/05/17 1006: Subjective Follow-up For: Acute delirium Subjective: Seen and examined at bedside. Patient is alert still altered. Able to communicate and follow commands. Still didnt have a bowel movement. Review of Systems Constitutional: Reports: see HPI. Objective Last 24 Hrs of Vital Signs/I&O Vital Signs Date Time Temp Pulse Resp B/P B/P Pulse O2 O2 Flow FiO2 Mean Ox Delivery Rate 09/05 0702 97.6 79 20 170/85 97 09/04 1808 97.8 71 18 142/62 96 Room Air 09/04 1622 96.2 80 18 156/83 96 09/04 1424 97.9 80 20 178/80 98 Room Air 09/04 1152 98.0 78 20 134/69 98 Room Air Intake & Output 09/05 1600 09/05 0800 09/05 0000 Intake Total 300 780 Output Total 200 Balance 300 580 Intake, IV 300 300 Intake, Oral 0 480 Number 1 Bowel Movements Output, Urine 200 Patient 43.091 kg Weight Weight Reported by Patient Measurement Method Physical Exam General Appearance: Alert, Oriented X3, Cooperative Skin: No Rashes, No Breakdown HEENT: Atraumatic, PERRLA, EOMI Neck: Supple, No JVD Cardiovascular: Normal S1, Normal S2, No Murmurs Lungs: Clear to Auscultation, Normal Air Movement Abdomen: Normal Bowel Sounds, Soft, No Tenderness Neurological: Normal Gait, Strength at 5/5 X4 Ext, Normal Tone Extremities: No Clubbing, No Cyanosis, No Edema Vascular: Normal Pulses, Pulses Symmetrical Current Medications: Current Medications Sig/Donaldo Start time Last Medication Dose Route Stop Time Status Admin Bisacodyl 10 MG ONCE ONE 09/04 1615 DC 09/04 HI 09/04 1616 2100 Docusate Sodium 100 MG DAILY 09/04 1611 AC 09/05 PO 0853 Gatifloxacin 1 GTT 0800,1200,1600,2000 09/04 1600 AC 09/05 OPH 0851 Gatifloxacin 1 GTT FOUR TIMES A DAY 09/04 1400 DC 09/04 OPH 1230 Heparin Sodium 0 .STK-MED ONE 09/04 1641 DC (Porcine) .ROUTE Heparin Sodium 5,000 UNIT Q8 09/04 1442 AC 09/05 (Porcine) SC 0617 Latanoprost 1 GTT AT BEDTIME 09/04 2200 AC 09/04 OPH 2232 Latanoprost 1 GTT QPM 09/04 2200 DC OPH Levothyroxine Sodium 0.088 MG DAILY AC 09/05 0700 AC 09/05 PO 0617 Levothyroxine Sodium 0.1 MG DAILY AC 09/05 0700 AC 09/05 PO 0617 Mirtazapine 15 MG QPM 09/04 2200 AC 09/04 PO 2230 Moxifloxacin HCl 1 GTT TID 09/04 2200 AC 09/05 OPH 0855 Olanzapine 5 MG BID 09/04 2200 AC 09/05 PO 0854 Polyethylene Glycol 17 GM DAILY 09/04 1611 AC PO Potassium Chloride 20 MEQ Q20H 09/04 1500 DC Sodium Chloride 1,000 ML IV Rivaroxaban 20 MG DAILY 09/05 1000 AC 09/05 PO 0854 Senna/Docusate Sodium 2 TAB DAILY PRN 09/04 1615 AC PO Sodium Chloride 1,000 ML Q20H 09/04 1845 AC 09/04 IV 09/05 1444 1839 Thiamine HCl 100 MG DAILY 09/05 1000 AC 09/05 PO 0854 Last 24 Hrs of Lab/James Results Last 24 Hrs of Labs/Mics: Laboratory Tests 09/05/17 0654: CBC w Diff NO MAN DIFF REQ, RBC 3.99 L, MCV 85.3, MCH 28.7, RDW 13.8, MPV 7.7, Gran % 66.9, Lymphocytes % 21.5, Monocytes % 8.5, Eosinophils % 2.4, Basophils % 0.7, Absolute Granulocytes 4.1, Absolute Lymphocytes 1.3, Absolute Monocytes 0.5 , Absolute Eosinophils 0.1, Absolute Basophils 0, PUBS MCHC 33.6 09/04/17 1740: Urinalysis LIGHT H, Urine Color YEL, Urine Clarity CLEAR, Urine pH 6.0, Ur Specific Gile 1.025, Urine Protein NEG, Urine Ketones TRACE H, Urine Nitrite NEG, Urine Bilirubin NEG, Urine Urobilinogen 0.2, Ur Leukocyte Esterase TRACE H , Ur Microscopic SEDIMENT EXAMINED, Urine WBC 3-5 H, Ur Epithelial Cells FEW, Urine Crystals 3+ CA OX H, Urine Hemoglobin NEG, Urine Glucose NEG Microbiology 09/04 1740 URINE ROUT: Urine Culture - RECD Assessment/Plan Assessment: Patient is a 77-year-old female with significant history of hypothyroidism, recent onset psychotic behavior presented with acute worsening of her mental status in the setting of recent surgery, constipation. She was recently started on antipsychotic therapy. Past history is notable for acute onset delirium then her son passed out suddenly in an MVA. Vital signs and physical examination are unremarkable. Labs are significant for mild hypovolemic hyponatremia, posterior UA for leukocyte esterase and crystals. Imaging with head CT ruled out acute intracranial pathology. Chest x-ray is unremarkable. Differentials Acute delirium in the setting of dehydration, constipation, sedation for cataract surgery, probable UTI Problem list Acute delirium Active suicidal ideation Hyponatremia Positive UA Acute delirium Probably secondary to hyponatremia from dehydration, constipation. Started patient on normal saline. We'll send for urine culture, renal ultrasound is unremarkable. Started on MiraLAX, Dulcolax suppository without any benefit. We will obtain AXR and proceed with fleet enema once we rule out obstruction. We will hold off antibiotics pending urine culture. Neuro consulted. Active suicidal ideation Probably secondary to adverse effect of antipsychotics. She was recently started on olanzapine. Psychiatric evaluation/consultation. Patient can't leave AMA. History of hypothyroidism Continue levothyroxine 188 g daily Recent cataract surgery Continue glaucoma/postsurgical eyedrops Recent psychosis Continue on olanzapine/mirtazapine 15 mg at bedtime DVT prophylaxis Continued Xarelto CODE STATUS Full code Problem List: 1. Neuropathy 2. Hyponatremia syndrome 3. Delirium Pain Ratin Pain Location: n/a Pain Goal: Pain 4 or less Pain Plan: tylenol prn Tomorrow's Labs & Rationales: cbc, bep Kyle Guillen 09/05/17 1020: Attending MD Review Statement Attending Statement Attending MD Statement: examined this patient, discuss w/resident/PA/OPTICAL ENGINEERING MANAGER, agreed w/resident/PA/OPTICAL ENGINEERING MANAGER, discussed with family, reviewed EMR data (avail), discussed with nursing, discussed with case mgmt, reviewed images, amended to note Attending Assessment/Plan: Ms. Culver is 77-year-old female with past medical history significant for hypothyroidism who presented to ED with chief complaint of altered mental status and was found to be hyponatremic. Patient found to have behavoiral changes and suicidal ideations on arrival to ER. Patient was evaluated by shady in ER and requested admission to medical service for working diagnosis of altered mental status and mild hyponatremia in dementia. Patient TFTs within normal limits on levothyroxine. Neurology consult requested. repeat urinalysis with low WBC 3-5 and f/u urine culture, f/u renal USG. MRI brain recently in april 2017 suggestive of advanced chronic microangiopathy. Constipation no bowel movement for past few days. Monitor bowel movement. abd xray. f/u pysch. gi/dvt prophyalxis full code.
--- NOTE | 2017-09-05 10:24 | ULTRASOUND REPORT ---
EXAMINATION: US RETROPERITONEAL COMPLETE (RENAL) CLINICAL INFORMATION: Positive urinary analysis, hyponatremia, and altered mental status. COMPARISON: None. TECHNIQUE: Real-time imaging of the kidneys and bladder. FINDINGS: RIGHT KIDNEY: 7.8 x 3.7 x 3.8 cm (SAG x AP x TRV). The kidney is grossly normal in size, and echogenicity. The lower pole of the right kidney is obscured due to overlying bowel gas and accordingly not evaluated. Renal cortical thickness is normal. No calculi or focal parenchymal lesions. No hydronephrosis. Incidental note is made of an exophytic 0.8 cm maximum dimension cortical renal cyst at the mid anterior cortex. LEFT KIDNEY: 8.9 x 4.1 x 4.6 cm (SAG x AP x TRV). The kidney is normal in size, contour, and echogenicity. Renal cortical thickness is normal. No calculi or focal parenchymal lesions. No hydronephrosis. BLADDER: Well-distended and normal. Bilateral ureteral jets are demonstrated. Prevoid bladder volume is 175 mL. IMPRESSION: 1. The inferior pole of the right kidney is not well-visualized due to overlying bowel gas and accordingly not evaluated. 2. Bilateral normal size kidneys towards the lower limit of normal, without hydronephrosis or calculi. 3. Sonographically unremarkable urinary bladder.
[2017-09-05 13:48] LABS: ABSOLUTE BASOPHIL COUNT 0 /CUMM (0.0-0.2); ABSOLUTE EOSINOPHIL COUNT 0.1 /CUMM (0.0-0.7); ABSOLUTE GRANULOCYTE CT 4.1 /CUMM (1.4-6.5); ABSOLUTE LYMPH COUNT 1.6 /CUMM (1.2-3.4); ABSOLUTE MONOCYTE COUNT 0.4 /CUMM (0.10-0.60); BASOPHIL % 0.8 % (0.0-2.0); EOSINOPHIL % 1.5 % (0-5); GRANULOCYTE % 65.8 % (42.2-75.2); HEMATOCRIT 36.2 % (37-47); MEAN CORPUSCULAR HGB 28.5 PG (27.0-31.0); MEAN CORPUSCULAR HGB CONC 33.2 G/DL (33.0-37.0); MEAN CORPUSCULAR VOLUME 85.6 FL (81.0-99.0); MEAN PLATELET VOLUME 7.3 FL (7.4-10.4); PLATELET COUNT 334 /CUMM (130-400); RBC DISTRIBUTION WIDTH 13.7 % (11.5-14.5); RED BLOOD CELL CT 4.22 /CUMM (4.20-5.40); WHITE BLOOD CELL COUNT 6.3 /CUMM (4.8-10.8)
--- NOTE | 2017-09-05 14:39 | RADIOLOGY REPORT ---
EXAMINATION: XR ABDOMEN MULTIPLE VIEWS CLINICAL INDICATION: Constipation for 2 weeks. COMPARISON: None TECHNIQUE: 2 views of the abdomen. FINDINGS: Significant fecal residual is noted throughout the entire large bowel, consistent with clinical history of chronic constipation. No superimposed bowel obstruction or perforation present. Atherosclerotic disease is noted within the aorta and its branches. No abnormal soft tissue mass or calcification seen. Partially included right hip shows postsurgical changes of right hip prosthesis, the visualized part of the processes appear intact. Mild diffuse osteopenia is noted involving all the visualized bones with multilevel degenerative spondylosis of the thoracolumbar spine. IMPRESSION: Significant fecal residual throughout the entire large bowel, consistent with clinical history of constipation. No radiographic evidence of superimposed bowel obstruction or perforation.
[2017-09-05 15:16] VITALS: BP 160/68
--- NOTE | 2017-09-05 16:23 | Cons- Neurology ---
General Information and HPI Consulting Request Date of Consult: 09/05/17 Requested By: Kyle Guillen MD Reason for Consult: Tremor/twitching Source of Information: family History of Present Illness: The patient is a 77-year-old female with past medical history significant for hip surgery, DVT, hypothyroidism and cataract surgery two days ago was brought to [facility] by her due to not being herself for the past 2 days after cataract surgery. Patient's mental health has been declining for the past few months. She was referred to psychiatrist by her primary care physician requiring inpatient admission for psychosis. She was started on Rozerem and subsequently converted to olanzapine. Since patient has been acting not like herself. She has been having panic attacks and remain seated in the couch throughout the day reporting the world is going to end. In addition to this patient feels actively suicidal for the past few weeks. Allergies/Medications Allergies: Coded Allergies: NO KNOWN ALLERGIES (06/04/13) Home Med List: Difluprednate (Durezol) 0.05 % DROPS 1 GTT OU 4XDAILY BOTH EYES (Reported) Gatifloxacin (Zymaxid) 0.5 % DROPS 1 GTT OU 4 TIMES/DAY BOTH EYES (Reported) Latanoprost (Xalatan) 0.005 % DROPS 1 GTT OU QPM BOTH EYES (Reported) Levothyroxine Sodium (Levoxyl) 88 MCG TABLET 1 TAB PO DAILY THYROID (Reported ) Levothyroxine Sodium 100 MCG TABLET 1 TAB PO DAILY THYROID Linaclotide (Linzess) 290 MCG CAPSULE 1 CAP PO DAILY GI (Reported) Mirtazapine 15 MG TABLET 1 TAB PO QPM ANXIETY/SLEEP (Reported) Olanzapine 5 MG TABLET 1 TAB PO BID MENTAL HEALTH (Reported) Polyethylene Glycol 3350 (Miralax) 17 GRAM POWD.PACK 1 PAC PO DAILY CONSTIPATION dissolve in water Pyridoxine HCl (Vitamin B-6) 50 MG TABLET 1 TAB PO DAILY SUPPLEMENT (Reported ) Rivaroxaban (Xarelto) 20 MG TABLET 1 TAB PO QPM DVT (Reported) with food Sennosides (Senna) 8.6 MG TABLET 2 TAB PO BID constipation Thiamine HCl (Vitamin B-1) (Unknown Strength) TABLET (Unknown Dose) PO AD SUPPLEMENT (Reported) Current Medications: Current Medications Sig/Donaldo Start time Last Medication Dose Route Stop Time Status Admin Docusate Sodium 100 MG DAILY 09/04 1611 AC 09/05 PO 0853 Gatifloxacin 1 GTT 0800,1200,1600,2000 09/04 1600 AC 09/05 OPH 1539 Heparin Sodium 0 .STK-MED ONE 09/04 1641 DC (Porcine) .ROUTE Heparin Sodium 5,000 UNIT Q8 09/04 1442 AC 09/05 (Porcine) SC 1403 Latanoprost 1 GTT AT BEDTIME 09/04 2200 AC 09/04 OPH 2232 Latanoprost 1 GTT QPM 09/04 2200 DC OPH Levothyroxine Sodium 0.088 MG DAILY AC 09/05 0700 AC 09/05 PO 0617 Levothyroxine Sodium 0.1 MG DAILY AC 09/05 0700 AC 09/05 PO 0617 Mirtazapine 15 MG QPM 09/04 2200 AC 09/04 PO 2230 Moxifloxacin HCl 1 GTT TID 09/04 2200 AC 09/05 OPH 0855 Non-Formulary 0 SEE ADMIN CRITERIA 09/05 1045 CAN Medication ANY 09/10 2300 Olanzapine 5 MG BID 09/04 2200 AC 09/05 PO 0854 Polyethylene Glycol 17 GM DAILY 09/04 1611 AC PO Potassium Chloride 20 MEQ Q20H 09/04 1500 DC Sodium Chloride 1,000 ML IV Rivaroxaban 20 MG DAILY 09/05 1000 AC 09/05 PO 0854 Senna/Docusate Sodium 2 TAB DAILY PRN 09/04 1615 AC PO Sodium Chloride 1,000 ML Q20H 09/05 1315 AC 09/05 IV 09/06 0914 1537 Sodium Chloride 1,000 ML Q20H 09/04 1845 DC 09/04 IV 09/05 1444 1839 Thiamine HCl 100 MG DAILY 09/05 1000 AC 09/05 PO 0854 Review of Systems Review of Systems: UTO Past History Travel History Traveled to [place] past 21 day No Medical History Blood Transfusion Hx: No Neurological: delerium EENT: cataracts Cardiovascular: NONE Respiratory: PNA Gastrointestinal: NONE Hepatic: NONE Renal: NONE Musculoskeletal: NONE Psychiatric: anxiety, bipolar disease, depression Endocrine: HYPOTHYROID Blood Disorders: NONE Cancer(s): NONE 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 Home Services at Home: None Primary Language: Kiswahili Smoking Status: Never Smoked ETOH Use: denies use Illicit Drug Use: denies illicit drug use Functional Ability ADLs Independent: dressing, eating, toileting, bathing. Ambulation: independent IADLs Independent: shopping, housework, finances, food prep, telephone, transportation , medication admin. Exam & Diagnostic Data Vital Signs and I&O Vital Signs Date Time Temp Pulse Resp B/P B/P Pulse O2 O2 Flow FiO2 Mean Ox Delivery Rate 09/05 1516 97.6 76 20 160/68 96 Room Air 09/05 0702 97.6 79 20 170/85 97 09/04 1808 97.8 71 18 142/62 96 Room Air 09/04 1622 96.2 80 18 156/83 96 Intake & Output 09/05 1600 09/05 0800 09/05 0000 Intake Total 800 300 780 Output Total 200 Balance 800 300 580 Intake, IV 400 300 300 Intake, Oral 400 0 480 Number 1 Bowel Movements Output, Urine 200 Patient 43.091 kg Weight Weight Reported by Patient Measurement Method Physical Exam: PaTIENT is alert and oriented to person, appears very anxious Able to follow only simple commands Limited speech output, mainly yes/no CN 2-12 overall intact Motor: increase tone t/o, no cogwheeling, mild high frequency/low amplitude tremors noted, no twitching noted, strength is antigravity t/o Neg isaura's No clonus Intact sensation grossly t/o Last 48 Hours of Lab Results: Laboratory Tests 09/05 09/05 1315 0654 Chemistry Sodium (137 - 145 mmol/L) 137 Potassium (3.5 - 5.1 mmol/L) 4.4 Chloride (98 - 107 mmol/L) 98 Carbon Dioxide (22 - 30 mmol/L) 28 Anion Gap (5 - 16) 11 BUN (7 - 17 mg/dL) 14 Creatinine (0.5 - 1.0 mg/dL) 0.8 Estimated GFR (>60 ml/min) > 60 BUN/Creatinine Ratio (7 - 25 %) 17.5 Hematology CBC w Diff NO MAN DIFF REQ NO MAN DIFF REQ WBC (4.8 - 10.8 /CUMM) 6.3 6.1 RBC (4.20 - 5.40 /CUMM) 4.22 3.99 L Hgb (12.0 - 16.0 G/DL) 12.0 11.4 L Hct (37 - 47 %) 36.2 L 34.0 L MCV (81.0 - 99.0 FL) 85.6 85.3 MCH (27.0 - 31.0 PG) 28.5 28.7 RDW (11.5 - 14.5 %) 13.7 13.8 Plt Count (130 - 400 /CUMM) 334 346 MPV (7.4 - 10.4 FL) 7.3 L 7.7 Gran % (42.2 - 75.2 %) 65.8 66.9 Lymphocytes % (20.5 - 51.1 %) 25.5 21.5 Monocytes % (1.7 - 9.3 %) 6.4 8.5 Eosinophils % (0 - 5 %) 1.5 2.4 Basophils % (0.0 - 2.0 %) 0.8 0.7 Absolute Granulocytes (1.4 - 6.5 /CUMM) 4.1 4.1 Absolute Lymphocytes (1.2 - 3.4 /CUMM) 1.6 1.3 Absolute Monocytes (0.10 - 0.60 /CUMM) 0.4 0.5 Absolute Eosinophils (0.0 - 0.7 /CUMM) 0.1 0.1 Absolute Basophils (0.0 - 0.2 /CUMM) 0 0 PUBS MCHC (33.0 - 37.0 G/DL) 33.2 33.6 09/04 09/03 1740 2009 Urines Urinalysis LIGHT H Urine Color (YEL,AMB,STR) YEL Urine Clarity (CLEAR) CLEAR Urine pH (5.0 - 8.0) 6.0 Ur Specific [place] (1.001 - 1.035) 1.025 Urine Protein (NEG,<30 MG/DL) NEG Urine Ketones (NEG) TRACE H Urine Nitrite (NEG) NEG Urine Bilirubin (NEG) NEG Urine Urobilinogen (0.1 - 1.0 EU/dl) 0.2 Ur Leukocyte Esterase (NEG) TRACE H Ur Microscopic SEDIMENT EXAMINED Urine WBC (0 - 2 /HPF) 3-5 H Ur Epithelial Cells (NONE,FEW) FEW Urine Crystals 3+ CA OX H Urine Hemoglobin (NEG) NEG Urine Osmolality (300 - 1000 MOSM/KG) 370 Urine Glucose (N MG/DL) NEG 09/03 2009 Toxicology Urine Opiates Screen (>2000 NG/ML) < 100.00 Methadone Screen (>300 NG/ML) 44 Barbiturate Screen (>200 NG/ML) < 60 Ur Phencyclidine Scrn (>25 NG/ML) < 6.00 Amphetamines Screen (>1000 NG/ML) < 100 U Benzodiazepines Scrn (>200 NG/ML) 615 H Urine Cocaine Screen (>300 NG/ML) < 50 Urine Cannabis Screen (>50 NG/ML) < 5.00 Urines Urine Color (YEL,AMB,STR) YEL Urine Clarity (CLEAR) CLEAR Urine pH (5.0 - 8.0) 7.5 Ur Specific [place] (1.001 - 1.035) 1.010 Urine Protein (NEG,<30 MG/DL) NEG Urine Ketones (NEG) TRACE H Urine Nitrite (NEG) NEG Urine Bilirubin (NEG) NEG Urine Urobilinogen (0.1 - 1.0 EU/dl) 0.2 Ur Leukocyte Esterase (NEG) TRACE H Ur Microscopic SEDIMENT EXAMINED Urine RBC (0 - 5 /HPF) RARE Urine WBC (0 - 2 /HPF) 3-5 H Ur Epithelial Cells (NONE,FEW) FEW Urine Bacteria (NEG/NONE) FEW H Hyaline Casts (0/LPF) RARE H Urine Mucus (FEW,NONE) RARE Urine Hemoglobin (NEG) NEG Urine Glucose (N MG/DL) NEG 09/03 1944 Chemistry Sodium (137 - 145 mmol/L) 132 L Potassium (3.5 - 5.1 mmol/L) 4.5 Chloride (98 - 107 mmol/L) 96 L Carbon Dioxide (22 - 30 mmol/L) 21 L Anion Gap (5 - 16) 15 BUN (7 - 17 mg/dL) 21 H Creatinine (0.5 - 1.0 mg/dL) 0.9 Estimated GFR (>60 ml/min) > 60 BUN/Creatinine Ratio (7 - 25 %) 23.3 Glucose (65 - 99 mg/dL) 90 Serum Osmolality (285 - 295 MOSM/KG) 272 L Calcium (8.4 - 10.2 mg/dL) 10.1 Total Bilirubin (0.2 - 1.3 mg/dL) 0.3 AST (14 - 36 U/L) 22 ALT (9 - 52 U/L) 34 Alkaline Phosphatase (<127 U/L) 107 Troponin I (< 0.11 ng/ml) 0.01 Total Protein (6.3 - 8.2 g/dL) 6.8 Albumin (3.5 - 5.0 g/dL) 4.1 Globulin (1.9 - 4.2 gm/dL) 2.7 Albumin/Globulin Ratio (1.1 - 2.2 %) 1.5 TSH &T3 &Free T4 Intrp (0.270 - 4.20 uIU/mL) 1.550 Hematology CBC w Diff NO MAN DIFF REQ WBC (4.8 - 10.8 /CUMM) 8.5 RBC (4.20 - 5.40 /CUMM) 4.33 Hgb (12.0 - 16.0 G/DL) 12.4 Hct (37 - 47 %) 36.8 L MCV (81.0 - 99.0 FL) 85.1 MCH (27.0 - 31.0 PG) 28.6 RDW (11.5 - 14.5 %) 13.9 Plt Count (130 - 400 /CUMM) 362 MPV (7.4 - 10.4 FL) 7.0 L Gran % (42.2 - 75.2 %) 59.9 Lymphocytes % (20.5 - 51.1 %) 29.5 Monocytes % (1.7 - 9.3 %) 8.0 Eosinophils % (0 - 5 %) 2.0 Basophils % (0.0 - 2.0 %) 0.6 Absolute Granulocytes (1.4 - 6.5 /CUMM) 5.1 Absolute Lymphocytes (1.2 - 3.4 /CUMM) 2.5 Absolute Monocytes (0.10 - 0.60 /CUMM) 0.7 H Absolute Eosinophils (0.0 - 0.7 /CUMM) 0.2 Absolute Basophils (0.0 - 0.2 /CUMM) 0.1 PUBS MCHC (33.0 - 37.0 G/DL) 33.5 Toxicology Serum Alcohol (<10 MG/DL) < 10.0 Imaging/Other Studies: CT head: 1. No intracranial hemorrhage, large infarction, mass lesion or hydrocephalus. 2. Severe small vessel ischemic changes. 3. Old bilateral basal ganglia and thalamic lacunar infarcts. Assessment/Plan Assessment: The patient is a 77-year-old female with past medical history significant for hip surgery, DVT, hypothyroidism and cataract surgery two days ago was brought to [facility] by her due to not being herself for the past 2 days after cataract surgery. Patient's mental health has been declining for the past few months. She was referred to psychiatrist by her primary care physician requiring inpatient admission for psychosis. She was started on Rozerem and subsequently converted to olanzapine. Since patient has been acting not like herself. She has been having panic attacks and remain seated in the couch throughout the day reporting the world is going to end. In addition to this patient feels actively suicidal for the past few weeks. Unclear etiology for tremor. ? medication induced. She does NOT appear to have Parkinson;s disease on exam CT ehad showed significant/severe microvascular disease Obtain MRI of brain w/ and w/o LUIS EDUADRO in AM Obtain EEG Check ammonia/LFt Check B12, if < 700 then supplement She may benefit from donepezil 5mg qhs for one month then 10mg qhs for memory Agree with psych consult F/u with Dr. Nugent in 1-6 weeks Call [facility] with questions Recommendations: See above Consult Acknowledgment - Thank you for your consult request.
[2017-09-05 22:00] VITALS: BP 110/78
[2017-09-06 06:33] VITALS: BP 150/92
--- NOTE | 2017-09-06 08:50 | Patient Discharge Instructions ---
Discharge Instructions General Discharge Information You were seen/treated for: acute delirium/psychosis/hypothyroidism/constipation Special Instructions: 1. please follow up with your pcp in one week 2. please follow up with psychiatry in one week 3. Please follow-up with the geriatrics. Diet Continue normal diet: Yes Activity Full Activity/No Limits: No Activity Self Limited: Yes Acute Coronary Syndrome Inclusion Criteria At DC or during hospital stay patient has or had the following: ACS DIAGNOSIS No Discharge Core Measures Meds if any: Prescribed or Continued at Discharge Meds if any: NOT Prescribed or Continued at Discharge Congestive Heart Failure Inclusion Criteria At DC or during hospital stay patient has or had the following: CHF DIAGNOSIS No Discharge Core Measures Meds if any: Prescribed or Continued at Discharge Meds if any: NOT Prescribed or Continued at Discharge Cerebrovascular accident Inclusion Criteria At DC or during hospital stay patient has or had the following: CVA/TIA Diagnosis No Discharge Core Measures Meds if any: Prescribed or Continued at Discharge Meds if any: NOT Prescribed or Continued at Discharge Venous thromboembolism Inclusion Criteria VTE Diagnosis No VTE Type NONE VTE Confirmed by (Test) NONE Discharge Core Measures - Per Current guidelines, there needs to be overlap - treatment for the first 5 days of Warfarin therapy. - If discharged on Warfarin prior to 5 days of - overlap therapy, the patient will need to be - assessed for post discharge needs including - *Post discharge parental anticoagulation - *Warfarin and/or parental anticoagulation education - *Follow up date to check INR post discharge At least 5 days overlap therapy as Inpatient No Meds if any: Prescribed or Continued at Discharge Note: Overlap Therapy is Warfarin and Anticoagulant Meds if any: NOT Prescribed or Continued at Discharge
[2017-09-06 10:54] LABS: ABSOLUTE BASOPHIL COUNT 0.1 /CUMM (0.0-0.2); ABSOLUTE EOSINOPHIL COUNT 0.2 /CUMM (0.0-0.7); ABSOLUTE GRANULOCYTE CT 3.7 /CUMM (1.4-6.5); ABSOLUTE LYMPH COUNT 1.5 /CUMM (1.2-3.4); ABSOLUTE MONOCYTE COUNT 0.5 /CUMM (0.10-0.60); BASOPHIL % 0.9 % (0.0-2.0); EOSINOPHIL % 3.6 % (0-5); GRANULOCYTE % 62.5 % (42.2-75.2); HEMATOCRIT 34.7 % (37-47); MEAN CORPUSCULAR HGB 28.7 PG (27.0-31.0); MEAN CORPUSCULAR HGB CONC 33.9 G/DL (33.0-37.0); MEAN CORPUSCULAR VOLUME 84.8 FL (81.0-99.0); MEAN PLATELET VOLUME 7.9 FL (7.4-10.4); PLATELET COUNT 332 /CUMM (130-400); RBC DISTRIBUTION WIDTH 13.8 % (11.5-14.5); WHITE BLOOD CELL COUNT 5.9 /CUMM (4.8-10.8)
--- NOTE | 2017-09-06 11:17 | PN- Housestaff ---
Patito MYERS,Danielle 09/06/17 1117: Subjective Follow-up For: ACUTE DELIRIUM Subjective: patient still confused and anxious seeming but is AOx3. She still is constipated with AB-xray showing a large amount of stool. She has waxing and waning periods of unresponsiveness and times when she fidgets with the blanket and rocks back and forth. Review of Systems Constitutional: Reports: weakness. Gastrointestinal: Reports: constipation. Neurological/Psychological: Reports: confusion. Objective Last 24 Hrs of Vital Signs/I&O Vital Signs Date Time Temp Pulse Resp B/P B/P Pulse O2 O2 Flow FiO2 Mean Ox Delivery Rate 09/06 1443 97.7 76 19 178/86 96 Room Air 09/06 0633 97.9 68 18 150/92 99 09/05 2200 98.3 62 20 110/78 96 Room Air Intake & Output 09/06 1600 09/06 0800 09/06 0000 Intake Total 750 240 880 Output Total Balance 750 240 880 Intake, IV 250 400 Intake, Oral 500 240 480 Number 1 0 0 Bowel Movements Physical Exam General Appearance: Alert, Oriented X3, Cooperative, Mild Distress Skin: No Rashes, No Breakdown, No Significant Lesion Cardiovascular: Regular Rate, Normal S1, Normal S2, No Murmurs Lungs: Clear to Auscultation, Normal Air Movement Abdomen: Normal Bowel Sounds, Soft, No Tenderness, No Hepatospenomegaly, No Masses Extremities: No Clubbing, No Cyanosis, No Edema, Normal Pulses Current Medications: Current Medications Sig/Donaldo Start time Last Medication Dose Route Stop Time Status Admin Aspirin 81 MG DAILY 09/07 1000 AC PO Atorvastatin Calcium 80 MG 1700 09/06 1700 AC PO Docusate Sodium 100 MG DAILY 09/04 1611 AC 09/06 PO 0930 Donepezil HCl 5 MG AT BEDTIME 09/06 2200 AC PO Gatifloxacin 1 GTT 0800,1200,1600,2000 09/04 1600 AC 09/06 OPH 1707 Heparin Sodium 5,000 UNIT Q8 09/04 1442 AC 09/06 (Porcine) SC 1430 Latanoprost 1 GTT AT BEDTIME 09/04 2200 AC 09/05 OPH 2110 Levothyroxine Sodium 0.088 MG DAILY AC 09/05 0700 AC 09/06 PO 0606 Levothyroxine Sodium 0.1 MG DAILY AC 09/05 0700 AC 09/06 PO 0606 Mirtazapine 15 MG QPM 09/04 2200 AC 09/05 PO 2108 Moxifloxacin HCl 1 GTT TID 09/04 220 AC 09/05 OPH 0855 Olanzapine 5 MG BID 09/04 2200 AC 09/06 PO 0930 Polyethylene Glycol 17 GM DAILY 09/04 1611 AC 09/06 PO 0931 Rivaroxaban 20 MG DAILY 09/05 1000 AC 09/06 PO 0930 Senna/Docusate Sodium 2 TAB DAILY PRN 09/04 1615 AC 09/06 PO 0931 Sodium Chloride 1,000 ML Q20H 09/05 1315 DC 09/05 IV 09/06 0914 1537 Sodium Phosphate 1 UNIT ONCE ONE 09/06 0945 DC 09/06 ID 09/06 0946 1430 Sodium Phosphate 1 UNIT ONCE ONE 09/05 1930 DC ID 09/05 1931 Thiamine HCl 100 MG DAILY 09/05 1000 AC 09/06 PO 0930 Last 24 Hrs of Lab/James Results Last 24 Hrs of Labs/Mics: Laboratory Tests 09/06/17 1143: Anion Gap 11, Estimated GFR > 60, BUN/Creatinine Ratio 15.7 09/06/17 0820: CBC w Diff NO MAN DIFF REQ, RBC 4.10 L, MCV 84.8, MCH 28.7, RDW 13.8, MPV 7.9, Gran % 62.5, Lymphocytes % 25.2, Monocytes % 7.8, Eosinophils % 3.6, Basophils % 0.9, Absolute Granulocytes 3.7, Absolute Lymphocytes 1.5, Absolute Monocytes 0.5 , Absolute Eosinophils 0.2, Absolute Basophils 0.1, PUBS MCHC 33.9 Assessment/Plan Assessment: Patient is a 77-year-old female with significant history of hypothyroidism, recent onset psychotic behavior presented with acute worsening of her mental status in the setting of recent surgery, constipation. She was recently started on antipsychotic therapy. Past history is notable for acute onset delirium then her son passed out suddenly in an MVA. Vital signs and physical examination are unremarkable. Labs are significant for mild hypovolemic hyponatremia, posterior UA for leukocyte esterase and crystals. Imaging with head CT ruled out acute intracranial pathology. Chest x-ray is unremarkable. Differentials Acute delirium in the setting of dehydration, constipation, sedation for cataract surgery, probable UTI? Problem list Acute delirium Active suicidal ideation Hyponatremia Positive UA Acute delirium Potentially secondary to hyponatremia from dehydration, constipation. Sodium has normalized today (140 up from 132) and patient continues to be confused. As per patient has periods of this delirium at home and has a history of lacunar infarcts. Medication could be another reason (BZD were high on admission) as could seizure. Psychiatry saw the patient on 09/05 and did a MMSE which was 26/30 with deductions for orientation and delayed recall. -Abdxray yesterday showed copious amount of stool. last (small) bm was on sep 04. today we will do fleet enema. -we will do EEG today -follow b12 level -neuro following -mri head without santiago today showed small lacunar infarct in right parietal region -because of the infarct and the fact that the patient is on xarelto for dvt, we will transfer to the patient to telemetry for monitoring and cardiac workup -echo, carotid u/s, asa/statin, cardiac consult have all been placed. we have placed [address] milka maguire to determine what we should do with xarelto but still have yet to hear back. -patient has a last bp of 178/86. permissive HTN for this patient with stroke. -bedside swallow was done and was normal. -patient has SLIGHTLY abnormal UA and no symptoms. follow UCX. Active suicidal ideation Probably secondary to adverse effect of antipsychotics. She was recently started on olanzapine. -Psychiatric evaluation/consultation for determination if we should continue this med. -Patient can't leave AMA. -continue 1:1 sitter. History of hypothyroidism Continue levothyroxine 188 g daily Recent cataract surgery Continue glaucoma/postsurgical eyedrops Recent psychosis Continue on olanzapine/mirtazapine 15 mg at bedtime Disposition patient may qualify for geriatric psych when she leaves here DVT prophylaxis Continued Xarelto CODE STATUS Full code Problem List: 1. Acute delirium Pain Ratin Pain Location: na Pain Goal: Remain pain free Pain Plan: na Tomorrow's Labs & Rationales: cbc charlesp Kyle Guillen 09/06/17 1135: Attending MD Review Statement Attending Statement Attending MD Statement: examined this patient, discuss w/resident/PA/PACKING AND FINAL ASSEMBLY SUPERVISOR, agreed w/resident/PA/PACKING AND FINAL ASSEMBLY SUPERVISOR, discussed with family, reviewed EMR data (avail), discussed with nursing, discussed with case mgmt, reviewed images, amended to note Attending Assessment/Plan: Ms. Culver is 77-year-old female with past medical history significant for hypothyroidism who presented to ED with chief complaint of altered mental status and was found to be hyponatremic. Patient found to have behavoiral changes and suicidal ideations on arrival to ER. Patient was evaluated by shady in ER and requested admission to medical service for working diagnosis of altered mental status and mild hyponatremia in dementia. Patient TFTs within normal limits on levothyroxine. Neurology consult apprecaited, f/u MRI brain and follow recommnedations. MRI brain recently in april 2017 suggestive of advanced chronic microangiopathy. F/u urine culture and monitor off abx for now. F/u labs as per neurology request. Constipation with heavy stool burden on abd xray: no bowel movement for past few days. Monitor bowel movement. obtain enema today. f/u shady and neurology. Family bedside. gi/dvt prophyalxis full code. MRI brain suggestive of small acute infarct on advanced chronic microangiopathy. Will transfer to [facility] for cardiac w/u, neurochecks. f/u [facility] carotid and ECHO. Cardiology consult. I spoke to family and updated results about MRI.
--- NOTE | 2017-09-06 11:34 | MRI REPORT ---
EXAMINATION: MR BRAIN WITHOUT CONTRAST CLINICAL INFORMATION: 77-year-old woman with chronic lacunar infarcts and dementia. COMPARISON: 09/03/[address], 05/12/2017 brain MRI TECHNIQUE: MRI of the brain without contrast was obtained using routine sequences. FINDINGS: Images are degraded by patient motion. Extensive patchy and confluent T2 hyperintense signal is again seen throughout the supratentorial and pontine white matter due to severe chronic microvascular ischemic changes. Chronic lacunar infarcts are seen in the basal ganglia and thalami. On today's study, there is a subcentimeter focus of restricted diffusion lateral to the posterior horn of the right lateral ventricle representing a small area of acute infarction. The ventricles and sulcal spaces are diffusely prominent due to chronic volume loss. No intracranial mass, intracerebral edema, intra-axial blood products, midline shift, or extra-axial collection is visualized. Normal arterial and venous vascular flow voids are present. The paranasal sinuses are well aerated. IMPRESSION: Small acute lacunar infarct in the right parietal lobe is superimposed upon advanced chronic microvascular ischemic changes.
[2017-09-06 14:43] VITALS: BP 178/86
--- NOTE | 2017-09-06 16:20 | Event Note ---
Event Note Event Note: Situation Acute parietal lobe lacunar infarct on MRI Background Patient is a 77 YO F with PMH significant for Psychosis, DVT on xarelto presented with acute delirium on 09/04/17. As she was found to have panic attacks for the past 2 weeks which was further worsened with sedation for cataract surgery refusing to take medications & suicidal ideation she was brought to ER by her . She remained hemodynamically stable with nonfocal neurological examination since admission. She is pleasant, alert and oriented with active suicidal ideation. Neuro consulted and further evaluated with MRI as per their request as work up for panic attacks. Assessment Patient developed acute lacunar stroke while on xarelto which definetely needs further evaluation. This could be secondary to underlying atherosclerois or lipohyalinosis (HTN) or age realted or a clot. Defientely she will benefit from tele monitoring. Plan Transfer to telemtry for continous rhythm monitoring NIH stroke scale Start on ASA 81mg and Atorvastatin 80mg daily Passed bedside swallow evaluation Carotid doppler and ECHO for further work up of stroke Cardiology consult with
--- NOTE | 2017-09-06 18:06 | Transfer of Care Summary ---
Hospital Course Course Hospital Course: Patient is a 77-year-old female with past medical history significant for hip surgery, DVT, hypothyroidism was brought to [facility] by her due to not being herself for the past 2 days. Patient's mental health has been declining for the past few months. She was referred to psychiatrist by her primary care physician requiring inpatient admission for psychosis. She was started on Rozerem and subsequently converted to olanzapine. Since [place] patient has been acting not like herself. She has been having panic attacks and remain seated in the couch throughout the day reporting the world is going to end. 2 days ago patient did have cataract surgery in the hospital for which she received mild sedation. Subsequently her mental status further worsened. In addition to this patient feels actively suicidal for the past few weeks. Upon further inquiring about plan - not sure about it. She had constipation at baseline and she didn't have a bowel movement for the past 2 weeks. She is unable to sleep usually starts seeping at 6 AM in the morning. Family history significant for grandmother with psychosis She never smoked/never had alcohol/no drug Surgical history significant for recent hip surgery complicated with deep vein thrombosis. Recent cataract surgery physical exam showed no findings other than delirium and anxiety. ekg showed NSR rate 78. U Benzodiazepines Scrn 615 H, Urine Ketones TRACE H, Urine Nitrite NEG, Urine Bilirubin NEG, Ur Leukocyte Esterase TRACE H, Urine WBC 3-5 H, Urine Bacteria FEW H, Troponin I 0.[address] ruled out acute intracranial pathology. Chest x-ray is unremarkable. Abdomen xray showed large amount of stool no perf or obstruction. renal ultrasound done for MILDLY positive UA, hyponatremia, and altered mental status-normal. Patient admitted to [facility] for evaluation and treatment of: Acute delirium Active suicidal ideation Hyponatremia Positive UA Assessment/Plan: Problem list Acute delirium Active suicidal ideation Hyponatremia Positive UA Acute delirium Potentially secondary to hyponatremia from dehydration, constipation. Sodium has normalized today (140 up from 132) and patient continues to be confused. As per patient has periods of this delirium at home and has a history of lacunar infarcts. Medication could be another reason (BZD were high on admission) as could seizure. Psychiatry saw the patient on 09/05 and did a MMSE which was 26/30 with deductions for orientation and delayed recall. -Abdxray yesterday showed copious amount of stool. last (small) bm was on sep 04. today we will do fleet enema. -EEG DONE TODAY PENDING RESULTS -follow b12 level -neuro following -mri head without santiago today showed small lacunar infarct in right parietal region -because of the infarct and the fact that the patient is on xarelto for dvt, we will transfer to the patient to telemetry for monitoring and cardiac workup -echo, carotid u/s, asa/statin, cardiac consult have all been placed. we have placed [address] milka maguire to determine what we should do with xarelto but still have yet to hear back. -patient has a last bp of 178/86. permissive HTN for this patient with stroke. -bedside swallow was done and was normal. -patient has SLIGHTLY abnormal UA and no symptoms. follow UCX. Active suicidal ideation Probably secondary to adverse effect of antipsychotics. She was recently started on olanzapine. -Psychiatric evaluation/consultation for determination if we should continue this med. -Patient can't leave AMA. -continue 1:1 sitter. History of hypothyroidism Continue levothyroxine 188 g daily Recent cataract surgery Continue glaucoma/postsurgical eyedrops Recent psychosis Continue on olanzapine/mirtazapine 15 mg at bedtime Disposition patient may qualify for geriatric psych when she leaves here DVT prophylaxis Continued Xarelto CODE STATUS Full code
--- NOTE | 2017-09-06 19:03 | ELECTROENCEPHALOGRAM REPORT ---
Electroencephalogram Report Electroencephalogram Results Date of service: 09/06/17 Attending MD: Kyle Guillen MD Director Environmental: Leandro EEG Number: [id number] Test Utilizes: Limited 10 lead digital recording Pertinent Hx/Physical/Neuro Findings/Clin Diagnosis: 77 year old woman with confusion and behavioral changes. Inpatient Medications: Current Medications Sig/Donaldo Start time Last Medication Dose Route Stop Time Status Admin Aspirin 81 MG DAILY 09/07 1000 AC PO Atorvastatin Calcium 80 MG 1700 09/06 1700 AC PO Docusate Sodium 100 MG DAILY 09/04 1611 AC 09/06 PO 0930 Donepezil HCl 5 MG AT BEDTIME 09/06 2200 AC PO Gatifloxacin 1 GTT 0800,1200,1600,2000 09/04 1600 AC 09/06 OPH 1707 Heparin Sodium 5,000 UNIT Q8 09/04 1442 AC 09/06 (Porcine) SC 1430 Latanoprost 1 GTT AT BEDTIME 09/04 2200 AC 09/05 OPH 2110 Levothyroxine Sodium 0.088 MG DAILY AC 09/05 0700 AC 09/06 PO 0606 Levothyroxine Sodium 0.1 MG DAILY AC 09/05 0700 AC 09/06 PO 0606 Mirtazapine 15 MG QPM 09/04 2200 AC 09/05 PO 2108 Moxifloxacin HCl 1 GTT TID 09/04 2200 AC 09/05 OPH 0855 Olanzapine 5 MG BID 09/04 2200 AC 09/06 PO 0930 Polyethylene Glycol 17 GM DAILY 09/04 1611 AC 09/06 PO 0931 Rivaroxaban 20 MG DAILY 09/05 1000 AC 09/06 PO 0930 Senna/Docusate Sodium 2 TAB DAILY PRN 09/04 1615 AC 09/06 PO 0931 Sodium Chloride 1,000 ML Q20H 09/05 1315 DC 09/05 IV 09/06 0914 1537 Sodium Phosphate 1 UNIT ONCE ONE 09/06 0945 DC 09/06 VT 09/06 0946 1430 Sodium Phosphate 1 UNIT ONCE ONE 09/05 1930 DC VT 09/05 1931 Thiamine HCl 100 MG DAILY 09/05 1000 AC 09/06 PO 0930 Interpretation: This is a limited recording as the patient was resistant to performing the full test. The recording demonstrates a normal frequency gradient during wakefulness, faster frequencies being in the frontal regions and slower in the posterior regions. The overall amplitude and frequencies are symmetric between the two hemispheres. There are no paroxysmal sharps or spikes. During sleep large vertex waves are seen within the central regions on a slower background as expected. The posterior dominant rhythm is 9 hertz. Impression: Normal EEG in the awake and asleep states.
--- NOTE | 2017-09-06 19:23 | PN- Neurology ---
Subjective Subjective: The patient is a 77-year-old female with past medical history significant for hip surgery, DVT, hypothyroidism and cataract surgery two days ago was brought to [facility] by her due to not being herself for the past 2 days after cataract surgery. Patient's mental health has been declining for the past few months. She was referred to psychiatrist by her primary care physician requiring inpatient admission for psychosis. She was started on Rozerem and subsequently converted to olanzapine. Since patient has been acting not like herself. She has been having panic attacks and remain seated in the couch throughout the day reporting the world is going to end. In addition to this patient feels actively suicidal for the past few weeks. Review of Systems: as above. Objective Vital Signs and I&Os Vital Signs Date Time Temp Pulse Resp B/P B/P Pulse O2 O2 Flow FiO2 Mean Ox Delivery Rate 09/06 1443 97.7 76 19 178/86 96 Room Air 09/06 0633 97.9 68 18 150/92 99 09/05 2200 98.3 62 20 110/78 96 Room Air Intake & Output 09/06 1600 09/06 0800 09/06 0000 09/05 1600 09/05 0800 09/05 0000 Intake Total 750 240 880 800 300 780 Output Total 200 Balance 750 240 880 800 300 580 Intake, IV 250 400 400 300 300 Intake, Oral 500 240 480 400 0 480 Number 1 0 0 1 Bowel Movements Output, Urine 200 Patient 94 lb 15.99 oz Weight Weight Reported by Patient Measurement Method Physical Exam: Alert and oriented x 3 Hypophonic. Very Nervous. Poor attention. EOMI, KYRIE.Face symmetric. Decent strength throughout. Some rigidity in arms, no rest tremor noted. Current Medications: Current Medications Sig/Donaldo Start time Last Medication Dose Route Stop Time Status Admin Aspirin 81 MG DAILY 09/07 1000 AC PO Atorvastatin Calcium 80 MG 1700 09/06 1700 AC PO Docusate Sodium 100 MG DAILY 09/04 1611 AC 09/06 PO 0930 Donepezil HCl 5 MG AT BEDTIME 09/06 220 AC PO Gatifloxacin 1 GTT 0800,1200,1600,2000 09/04 1600 AC 09/06 OPH 1707 Heparin Sodium 5,000 UNIT Q8 09/04 1442 AC 09/06 (Porcine) SC 1430 Latanoprost 1 GTT AT BEDTIME 012199 AC 09/05 OPH 2110 Levothyroxine Sodium 0.088 MG DAILY AC 09/05 0700 AC 09/06 PO 06 Levothyroxine Sodium 0.1 MG DAILY AC 09/05 0700 AC 09/06 PO 0606 Mirtazapine 15 MG QPM 09/04 220 AC 09/05 PO 2108 Moxifloxacin HCl 1 GTT TID 09/04 220 AC 09/05 OPH 0855 Olanzapine 5 MG BID 09/04 220 AC 09/06 PO 0930 Polyethylene Glycol 17 GM DAILY 09/04 1611 AC 09/06 PO 0931 Rivaroxaban 20 MG DAILY 09/05 1000 AC 09/06 PO 0930 Senna/Docusate Sodium 2 TAB DAILY PRN 09/04 1615 AC 09/06 PO 0931 Sodium Chloride 1,000 ML Q20H 09/05 1315 DC 09/05 IV 09/06 0914 1537 Sodium Phosphate 1 UNIT ONCE ONE 09/06 0945 DC 09/06 ND 09/06 0946 1430 Sodium Phosphate 1 UNIT ONCE ONE 09/05 1930 DC ND 09/05 193 Thiamine HCl 100 MG DAILY 09/05 1000 AC 09/06 PO 0930 Results Last 24 Hours of Lab Results: Laboratory Tests 09/06 09/06 1143 0820 Chemistry Sodium (137 - 145 mmol/L) 140 Potassium (3.5 - 5.1 mmol/L) 3.7 Chloride (98 - 107 mmol/L) 103 Carbon Dioxide (22 - 30 mmol/L) 26 Anion Gap (5 - 16) 11 BUN (7 - 17 mg/dL) 11 Creatinine (0.5 - 1.0 mg/dL) 0.7 Estimated GFR (>60 ml/min) > 60 BUN/Creatinine Ratio (7 - 25 %) 15.7 Hematology CBC w Diff NO MAN DIFF REQ WBC (4.8 - 10.8 /CUMM) 5.9 RBC (4.20 - 5.40 /CUMM) 4.10 L Hgb (12.0 - 16.0 G/DL) 11.8 L Hct (37 - 47 %) 34.7 L MCV (81.0 - 99.0 FL) 84.8 MCH (27.0 - 31.0 PG) 28.7 RDW (11.5 - 14.5 %) 13.8 Plt Count (130 - 400 /CUMM) 332 MPV (7.4 - 10.4 FL) 7.9 Gran % (42.2 - 75.2 %) 62.5 Lymphocytes % (20.5 - 51.1 %) 25.2 Monocytes % (1.7 - 9.3 %) 7.8 Eosinophils % (0 - 5 %) 3.6 Basophils % (0.0 - 2.0 %) 0.9 Absolute Granulocytes (1.4 - 6.5 /CUMM) 3.7 Absolute Lymphocytes (1.2 - 3.4 /CUMM) 1.5 Absolute Monocytes (0.10 - 0.60 /CUMM) 0.5 Absolute Eosinophils (0.0 - 0.7 /CUMM) 0.2 Absolute Basophils (0.0 - 0.2 /CUMM) 0.1 PUBS MCHC (33.0 - 37.0 G/DL) 33.9 Recent Imaging Studies: MRI brain -reveals extensive white matter vascular disease around periventricular and subcortical regions with a QUESTIONABLE small diffusion positive lesion that could represent a new small subcortical R parietal infarction. Assessment/Plan Assessment: 77 year old who over the last half year has had cognitive decline and behavioral changes. EEG is normal and MRI shows extensive white matter vascular disease including a new small subcortical infarct. It is very likely that she has had multiple previous small subcortical "infarcts" that are now seen as confluent white matter vascular lesions. On further note SHE IS NOT TAKING XARELTO FOR PREVENTION OF STROKE as she is now known for PAF. She is taking it for DVT prophx. Also, her white matter lesions and current small infarct are more consistent with hyalinosis and small vessel mini-infarctions for which anti-coagulation would do nothing. Lastly, there is a possibility that these lesions have little to do with her overall deterioration (although they could contribute to some vascular cognitive changes), but rather an underlying primary neurodegenerative disease such as AD or Parkinson's could be the real cause for her behavioral issues and psychosis. Plan: 1. Recommend adding aspirin 81mg to her current regimen. 2. C/w Xarleto for DVT prophx if needed. 3. Add Crestor 40mg PO qhs 4. Monitor with telemetry, and get CD and Echo. 5. Consider outpt ANUSHA scan to determine whether she has a Parkinsonian disease. 6. Assess swallow. 7. PT/OT 8. Defer treatment of behavioral issues to psych. YC
[2017-09-06 22:15] VITALS: BP 150/70
--- NOTE | 2017-09-06 22:16 | ULTRASOUND REPORT ---
EXAMINATION: BILATERAL DUPLEX CAROTID ULTRASOUND CLINICAL INDICATION: 77-year-old female presenting with acute delirium \T\ shakiness. MRI today showed an acute lacunar infarct in the right parietal lobe. COMPARISON: MRI of the brain performed earlier today. TECHNIQUE: Real-time ultrasound and Doppler techniques (integrating B-mode 2D vascular images, Doppler spectral analysis and color flow Doppler imaging) were utilized to interrogate the extracranial carotid and vertebral arteries bilaterally. The degree of stenosis was assessed by criteria similar to NASCET. FINDINGS: On the RIGHT, there is mild echogenic plaque present at the carotid bifurcation. In the distal CCA, the peak systolic velocity is 82 cm/sec. In the proximal ICA, the peak systolic velocity is 53 cm/sec, and the end diastolic velocity is 13 cm/sec. In the proximal ECA, the peak systolic velocity is 98 cm/sec. On the LEFT, there is no significant plaque present at the carotid bifurcation. In the distal CCA, the peak systolic velocity is 72 cm/sec. In the proximal ICA, the peak systolic velocity is 72 cm/sec, and the end diastolic velocity is 16 cm/sec. In the proximal ECA, the peak systolic velocity is 99 cm/sec. The vertebral arteries show antegrade flow with normal waveforms bilaterally. IMPRESSION: 1. The right internal carotid artery shows no hemodynamically significant (0-49%) stenosis. 2. The left internal carotid artery shows no hemodynamically significant (0-49%) stenosis.
--- NOTE | 2017-09-07 06:49 | PN- Housestaff ---
Yoselin MYERS,Tameka 09/07/17 0649: Subjective Follow-up For: DELIRUM, hypothyroidism, suicidal ideation, hyponatremia, stroke, and constipation. Complaints: no complaints Tele-Events Since Last Visit: Normal sinus rhythm heart rate 90 Subjective: Patient was seen and examined by me today at bedside. No overnight events. She is alert and confused and not answering any questions. Review of system unobtainable. Review of Systems Constitutional: Reports: no symptoms. Cardiovascular: Reports: no symptoms. Respiratory: Reports: no symptoms. Gastrointestinal: Reports: no symptoms. Genitourinary: Reports: no symptoms. Musculoskeletal: Reports: no symptoms. Objective Last 24 Hrs of Vital Signs/I&O Vital Signs Date Time Temp Pulse Resp B/P B/P Pulse O2 O2 Flow FiO2 Mean Ox Delivery Rate 09/07 1126 98.2 88 20 152/78 09/07 0739 98.2 88 20 152/78 96 Room Air 09/06 2215 98.9 89 20 150/70 94 09/06 1443 97.7 76 19 178/86 96 Room Air Intake & Output 09/07 1600 09/07 0800 09/07 0000 Intake Total 150 200 Output Total Balance 150 200 Intake, IV 0 Intake, Oral 150 200 Number 0 Bowel Movements Physical Exam General Appearance: Alert, Oriented X3, Cooperative, No Acute Distress HEENT: PERRLA Cardiovascular: Regular Rate, Normal S1, Normal S2, No Murmurs Lungs: Clear to Auscultation Abdomen: Normal Bowel Sounds, Soft, No Tenderness Neurological: Strength at 5/5 X4 Ext, Sensation Intact Extremities: No Edema Current Medications: Current Medications Sig/Donaldo Start time Last Medication Dose Route Stop Time Status Admin Aspirin 81 MG DAILY 09/07 1000 AC 09/07 PO 1127 Atorvastatin Calcium 80 MG 1700 09/06 1700 AC 09/06 PO 1800 Docusate Sodium 100 MG DAILY 09/04 1611 AC 09/07 PO 1006 Donepezil HCl 5 MG AT BEDTIME 09/06 220 AC 09/06 PO 2116 Gatifloxacin 1 GTT 0800,1200,1600,2000 09/04 1600 AC 09/07 OPH 0817 Heparin Sodium 5,000 UNIT Q8 09/04 1442 DC 09/07 (Porcine) SC 0536 Latanoprost 1 GTT AT BEDTIME 09/04 220 AC 09/06 OPH 2200 Levothyroxine Sodium 0.088 MG DAILY AC 09/05 0700 AC 09/07 PO 0536 Levothyroxine Sodium 0.1 MG DAILY AC 09/05 0700 AC 09/07 PO 0536 Lisinopril 5 MG DAILY 09/07 1000 AC 09/07 PO 1126 Mirtazapine 15 MG QPM 09/04 2200 AC 09/06 PO 2116 Moxifloxacin HCl 1 GTT TID 09/04 220 AC 09/06 OPH 2125 Olanzapine 5 MG BID 09/04 220 AC 09/07 PO 1127 Polyethylene Glycol 17 GM DAILY 09/04 1611 AC 09/07 PO 1005 Rivaroxaban 20 MG DAILY 09/05 1000 AC 09/07 PO 1006 Senna/Docusate Sodium 2 TAB DAILY PRN 09/04 1615 AC 09/06 PO 0931 Sodium Phosphate 1 UNIT ONCE ONE 09/07 1145 AC VT 09/07 1146 Thiamine HCl 100 MG DAILY 09/05 1000 AC 09/07 PO 1006 Last 24 Hrs of Lab/James Results Last 24 Hrs of Labs/Mics: Laboratory Tests 09/07/17 0630: Anion Gap 12, Estimated GFR > 60, BUN/Creatinine Ratio 15.0, CBC w Diff NO MAN DIFF REQ, RBC 4.08 L, MCV 83.9, MCH 28.6, RDW 14.0, MPV 7.8, Gran % 56.9, Lymphocytes % 30.0, Monocytes % 9.0, Eosinophils % 3.3, Basophils % 0.8, Absolute Granulocytes 3.7, Absolute Lymphocytes 2.0, Absolute Monocytes 0.6, Absolute Eosinophils 0.2, Absolute Basophils 0.1, PUBS MCHC 34.2 09/06/17 1143: Anion Gap 11, Estimated GFR > 60, BUN/Creatinine Ratio 15.7 Lines/Diet/Fluids Restraints: 1:1 SITTER Assessment/Plan Assessment: Patient is a 77-year-old female with significant history of hypothyroidism, recent onset psychotic behavior presented with acute worsening of her mental status in the setting of recent surgery, constipation. Problem list Acute delirium Active suicidal ideation Hyponatremia Stroke Constipation 1. Acute delirium * Patient had acute delirium which is possibly secondary due to hyponatremia [ dehydration], recent cataract surgery, sedation used during surgery, constipation, recent antipsychotic medication. Patient is alert, confused. Patient's sodium normalized to 138 today. We will follow up with urine culture today. * Psychiatry saw the patient on 09/05 and did a MMSE which was 26/30 with deductions for orientation and delayed recall. * Abdominal x-ray showed copious amount of stool. Patient had fleet enema yesterday once. Her last bowel movement was on September 04. We will give 1 more fleet enema today. A * patient was seen by neurology yesterday and a EEG was done which was found to be normal. Neurologist wanted ANUSHA scan as an outpatient to rule out any ParkinsONISM. Urology follow-up appreciated * mri head without santiago today showed small lacunar infarct in right parietal region in spite of being on Xarelto. This can be secondary due to chronic hypertension. Neurology advised to continue Xarelto . * Carotid Doppler was negative. Patient will have echocardiogram done today and followed by medical registrar. We will continue aspirin and statin. * Patient is on regular diet and able to swallow. * Patient doesn't give any history of hypertension and she is not on any antihypertensive medication. Since admission patient blood pressure is about 160 -170 hence we'll start her on lisinopril 5 mg daily. Active suicidal ideation * Probably secondary to adverse effect of antipsychotics. She was recently started on olanzapine. We will continue olanzapine and mirtazapine, DONEPEZIL. * Psychiatric evaluation/consultation for determination if we should continue this med. * Patient can't leave AMA. * continue 1:1 sitter. History of hypothyroidism * Continue levothyroxine 188 g daily Recent cataract surgery * Continue glaucoma/postsurgical eyedrops Plan-psychiatry follow-up, neuro follow-up, cardiology follow-up. Disposition patient may qualify for geriatric psych when she leaves here DVT prophylaxis Continued Xarelto CODE STATUS Full code Problem List: 1. Acute delirium Pain Ratin Pain Location: NONE Pain Goal: Remain pain free Pain Plan: TYLENOL Tomorrow's Labs & Rationales: Jennifer Jeffrey MD 09/07/171923: Attending MD Review Statement Attending Statement Attending MD Statement: examined this patient, discuss w/resident/PA/DIRECTOR OF CLINICAL EDUCATION, agreed w/resident/PA/DIRECTOR OF CLINICAL EDUCATION, discussed with family, reviewed EMR data (avail), discussed with nursing, discussed with case mgmt, amended to note Attending Assessment/Plan: Patient seen and examined. Resting comfotably and not in any distress. Confused. present at the bedside and stes that it will be challenging taking care of her by himself at home. He reprots that she has has neurologic deficits in the past year on and off that have been attributed to be TIAs. On exam she is very pleasant. She has no focal motor deficit on exam. SHe has had no events on telemetry monitoring overnight. Carotid doppler shows no significant disease. Awaiting Echo results. Recommendations. -Continue telemetry monitoring overnight. -Add low dose ACEI to her regimen for blood pressure control. -Continue AC therapy (originally started for her DVT). -Discharge planning to SNF.
[2017-09-07 07:39] VITALS: BP 152/78
[2017-09-07 07:55] LABS: ABSOLUTE BASOPHIL COUNT 0.1 /CUMM (0.0-0.2); ABSOLUTE EOSINOPHIL COUNT 0.2 /CUMM (0.0-0.7); ABSOLUTE GRANULOCYTE CT 3.7 /CUMM (1.4-6.5); ABSOLUTE MONOCYTE COUNT 0.6 /CUMM (0.10-0.60); BASOPHIL % 0.8 % (0.0-2.0); EOSINOPHIL % 3.3 % (0-5); GRANULOCYTE % 56.9 % (42.2-75.2); HEMATOCRIT 34.2 % (37-47); MEAN CORPUSCULAR HGB 28.6 PG (27.0-31.0); MEAN CORPUSCULAR HGB CONC 34.2 G/DL (33.0-37.0); MEAN CORPUSCULAR VOLUME 83.9 FL (81.0-99.0); MEAN PLATELET VOLUME 7.8 FL (7.4-10.4); PLATELET COUNT 332 /CUMM (130-400); RED BLOOD CELL CT 4.08 /CUMM (4.20-5.40); WHITE BLOOD CELL COUNT 6.6 /CUMM (4.8-10.8)
[2017-09-07 14:29] VITALS: BP 136/62
--- NOTE | 2017-09-07 14:54 | Discharge Summary ---
Visit Information Visit Dates Admission Date: 09/04/17 Discharge Date: 09/09/17 Hospital Course Course Attending Physician: Jennifer Obando MD Primary Care Physician: Mike Caceres MD Hospital Course: Ms Culver is a 77-year-old female with past medical history of hypothyroidism, hynatremia (resolved), distant history of in-patient psychiatric admission at 20 yrs ago, and recent onset psychotic behavior presented with acute worsening of her mental status, including suicidal ideation, and drowsiness in the setting of recent surgery, and constipation. She was initially admitted in the general medical floor, and was later transferred to telemetry floor for the management of following issues: # Acute delirium, multiple lacunar infractions Patient had acute delirium which is possibly secondary due to hyponatremia [ dehydration], recent cataract surgery, sedation used during surgery, constipation, recent antipsychotic medication. She has been alert, confused intermittantly, dut not delirius. Organic causes of delirium were checked for- no electrolytes abnormalities, TSH normal, no infections, but CT of head showed severe small vessel ischemic changes, and old bilateral basal ganglia and thalamic lacunar infarcts. MRI showed small acute lacunar infarct in the right parietal lobe is superimposed upon advanced chronic microvascular ischemic changes. EEG was normal. Carotid Doppler was negative. Neurologist was consulted who suggested that her presentation could be due to multiple small subcortical infarcts, that now seem as confluent white matter vascular lesions. Also, an underlying primary neurodegenerative disorder like ED or Parkinson's could not be ruled out at this time. She has been suggested to continue with Xarelto for now. We were continuing her aspirin and statin. Given her borderline hypertension, lisinopril 5 mg was added to control blood pressure, also with the hope to have benefits, in case she has vascular dementia. # Suicidal ideation She initially expressed suicidal ideation and had a continous observation monitor. Currently she denies any suicidal or homicidal ideation. Patient is currently on mirtazapine, and donepezil. She now has a Halter monitor, and does not seem to have any active SI/HI issues. #Constipation Patient seems to have chronic constipation, a series of bowel regimen orally as well as eczema was provided, which relieved her constipation. She'll probably require daily medications to relieve her from constipation. Of note, constipation has been reported as one of the causes for altered mental status in the elderly population. # History of hypothyroidism * Continued levothyroxine 188 g daily # Recent cataract surgery * Continued glaucoma/postsurgical eyedrops (topical antibiotics q4 hr) #Discharge disposition: She is to be discharged today to a short-term rehabilitation facility. She is to follow-up with neurologist as an outpatient, for further workup, including a ANUSHA scan to rule put PD. She also needs to follow up with peanut roaster, and a referral has been placed along with this discharge. She also has to follow up with psychiatry service. # Diet: Regular diet # DVT prophylaxis: Xarelto # CODE STATUS: Full code Allergies: Coded Allergies: NO KNOWN ALLERGIES (06/04/13) Significant Procedures: EEG done on 09/06/17: Interpretation: This is a limited recording as the patient was resistant to performing the full test. The recording demonstrates a normal frequency gradient during wakefulness, faster frequencies being in the frontal regions and slower in the posterior regions. The overall amplitude and frequencies are symmetric between the two hemispheres. There are no paroxysmal sharps or spikes. During sleep large vertex waves are seen within the central regions on a slower background as expected. The posterior dominant rhythm is 9 hertz. Impression: Normal EEG in the awake and asleep states. DICTATED BY: Jovanna YMERS,Jeronimo DATE/TIME DICTATED:09/06/171856 HOOK [employer] EYE ATTACHER:ROLANDA DATE/TIME TRANSCRIBED:09/06/171856 REPORT NUMBER:[id number] Head MRI done on 09/06/2017: FINDINGS: Images are degraded by patient motion. Extensive patchy and confluent T2 hyperintense signal is again seen throughout the supratentorial and pontine white matter due to severe chronic microvascular ischemic changes. Chronic lacunar infarcts are seen in the basal ganglia and thalami. On today's study, there is a subcentimeter focus of restricted diffusion lateral to the posterior horn of the right lateral ventricle representing a small area of acute infarction. The ventricles and sulcal spaces are diffusely prominent due to chronic volume loss. No intracranial mass, intracerebral edema, intra-axial blood products, midline shift, or extra-axial collection is visualized. Normal arterial and venous vascular flow voids are present. The paranasal sinuses are well aerated. IMPRESSION: Small acute lacunar infarct in the right parietal lobe is superimposed upon advanced chronic microvascular ischemic changes. DICTATED BY: Maddi Muro MD DATE/TIME DICTATED:09/06/171125 [employer]OOK [employer] EYE ATTACHER:ALVAREZ DATE/TIME TRANSCRIBED:09/06/171125 CAT scan of the head done on 09/03/2017: FINDINGS: There is no intracranial hemorrhage, large infarction, or mass lesion. There is no extra-axial collection. There is severe confluent hypoattenuation in the bilateral cerebral white matter and within the central bo likely reflecting small vessel ischemic changes. There are chronic bilateral basal ganglia and thalamic lacunar infarcts. The paranasal sinuses are clear. The mastoids and middle ear cavities are clear. There are atherosclerotic calcification of the carotid siphons and vertebral arteries. There are staphylomas bilaterally as can be seen with high axial myopia. IMPRESSION: 1. No intracranial hemorrhage, large infarction, mass lesion or hydrocephalus. 2. Severe small vessel ischemic changes. 3. Old bilateral basal ganglia and thalamic lacunar infarcts. DICTATED BY: Lo Barnett MD DATE/TIME DICTATED:09/03/171906 [employer] EYE ATTACHER:ALVAREZ DATE/TIME TRANSCRIBED:09/03/171906 Carotid Doppler study done on 09/06/2017: FINDINGS: On the RIGHT, there is mild echogenic plaque present at the carotid bifurcation. In the distal CCA, the peak systolic velocity is 82 cm/sec. In the proximal ICA, the peak systolic velocity is 53 cm/sec, and the end diastolic velocity is 13 cm/sec. In the proximal ECA, the peak systolic velocity is 98 cm/sec. On the LEFT, there is no significant plaque present at the carotid bifurcation. In the distal CCA, the peak systolic velocity is 72 cm/sec. In the proximal ICA, the peak systolic velocity is 72 cm/sec, and the end diastolic velocity is 16 cm/sec. In the proximal ECA, the peak systolic velocity is 99 cm/sec. The vertebral arteries show antegrade flow with normal waveforms bilaterally. IMPRESSION: 1. The right internal carotid artery shows no hemodynamically significant (0-49%) stenosis. 2. The left internal carotid artery shows no hemodynamically significant (0-49%) stenosis. DICTATED BY: Mike Xie MD DATE/TIME DICTATED:09/06/172204 [employer] EYE ATTACHER:JOSTIN DATE/TIME TRANSCRIBED:09/06/172204 Echocardiogram done on 09/08/2017: FINDINGS Left Ventricle Normal left ventricular size, wall thickness and systolic function with no obvious regional wall motion abnormalities. The ejection fraction is visually estimated at >65%. Abnormal relaxation filling pattern of the left ventricle for age (stage 1 diastolic dysfunction). Right Ventricle The right ventricle is normal in size and function. Right Atrium The right atrium is normal in size. Left Atrium The left atrium is normal in size. The interatrial septum is intact. Mitral Valve Mild mitral annular calcification. Mitral valve mildly thickened. Trace mitral regurgitation. Aortic Valve Structurally normal aortic valve without significant sclerosis or stenosis. There is aortic regurgitation. Tricuspid Valve Structurally normal tricuspid valve. Trace tricuspid regurgitation. No evidence of pulmonary hypertension. Right ventricular systolic pressure estimated to be within the normal range at 24 mmHg. Pulmonic Valve Pulmonic valve not well visualized. There is no pulmonic regurgitation. Pericardium Normal pericardium without effusion. No pleural effusion. Great Vessels Normal aortic root dimension. Normal size inferior vena cava. CONCLUSIONS Normal left ventricular size, wall thickness and systolic function with no obvious regional wall motion abnormalities. The ejection fraction is visually estimated at >65%. Abnormal relaxation filling pattern of the left ventricle for age (stage 1 diastolic dysfunction). The right ventricle is normal in size and function. The atria are normal in size. Trace mitral regurgitation. Trace tricuspid regurgitation. No evidence of pulmonary hypertension. Uli Azar M.D. (Electronically Signed) Final Date: 08 September 2017 12:07 MEASUREMENTS (Male / Female) Normal Values 2D ECHO LV Diastolic Diameter PLAX 3.9 cm 4.2 - 5.9 / 3.9 - 5.3 cm LV Systolic Diameter PLAX 2.3 cm 2.1 - 4.0 cm LV Fractional Shortening PLAX 41.0 % 25 - 46 % LV Ejection Fraction 2D Teich 72.5 % IVS Diastolic Thickness 0.8 cm LVPW Diastolic Thickness 0.8 cm LV Relative Wall Thickness 0.4 LVOT Diameter 1.7 cm Aortic Root Diameter 2.4 cm LA Systolic Diameter LX 2.0 cm 3.0 - 4.0 / 2.7 - 3.8 cm Ascending Aorta Diameter 2.7 cm DOPPLER AV Peak Velocity 139.0 cm/s AV Peak Gradient 7.7 mmHg AV Mean Velocity 82.9 cm/s AV Mean Gradient 3.0 mmHg AV Velocity Time Integral 27.3 cm LVOT Peak Velocity 80.5 cm/s LVOT Peak Gradient 2.6 mmHg LVOT Mean Velocity 53.2 cm/s LVOT Mean Gradient 1.0 mmHg LVOT Velocity Time Integral 21.7 cm LVOT Stroke Volume 49.3 cm AV Area Cont Eq vti 1.8 cm AV Area Cont Eq pk 1.3 cm MV Peak Velocity 110.0 cm/s MV Peak Gradient 4.8 mmHg MV Mean Velocity 61.0 cm/s MV Mean Gradient 2.0 mmHg Mitral E Point Velocity 78.0 cm/s Mitral A Point Velocity 93.3 cm/s Mitral E to A Ratio 0.8 MV PHT Velocity 81.4 cm/s MV Deceleration Fannin 273.0 cm/s MV Pressure Half Time 89.5 ms MV Area PHT 2.5 cm MV Deceleration Time 275.0 ms TR Peak Velocity 217.0 cm/s TR Peak Gradient 18.8 mmHg Right Atrial Pressure 5.0 mmHg Pulmonary Artery Systolic Pressu 23.8 mmHg Right Ventricular Systolic Press 23.8 mmHg PV Peak Velocity 82.7 cm/s PV Peak Gradient 2.7 mmHg PV Mean Velocity 57.7 cm/s PV Mean Gradient 2.0 mmHg PV Velocity Time Integral 19.2 cm DICTATED BY: Uli Azar MD DATE/TIME DICTATED:09/08/177 [employer] EYE ATTACHER:JOSTIN /TIME TRANSCRIBED:09/08/171206 Renal ultrasound done on 09/05/2017: IMPRESSION: 1. The inferior pole of the right kidney is not well-visualized due to overlying bowel gas and accordingly not evaluated. 2. Bilateral normal size kidneys towards the lower limit of normal, without hydronephrosis or calculi. 3. Sonographically unremarkable urinary bladder. DICTATED BY: Mariah Garcia MD /TIME DICTATED:09/05/17952 [employer] EYE ATTACHER:JOSTIN /TIME TRANSCRIBED:09/05/17952 Abdomen x-ray done on 09/05/2017 (when she had constipation): IMPRESSION: Significant fecal residual throughout the entire large bowel, consistent with clinical history of constipation. No radiographic evidence of superimposed bowel obstruction or perforation. DICTATED BY: Mariah Garcia MD DATE/TIME DICTATED:09/05/171405 [employer] EYE ATTACHER:JOSTIN /TIME TRANSCRIBED:09/05/171405 Disposition Summary Disposition Principal Diagnosis: Acute delirium; acute stroke; small lacunar infarct right parietal region Additional Diagnosis: Deep vein thrombosis on anticoagulation with Xarelto. Hypothyroidism. Discharge Disposition: SNF Discharge Instructions General Discharge Information Code Status: Full Code Patient's Diet: Regular diet Patient's Activity: As tolerated, will need assistance. Follow-Up Instructions/Appts: Please follow up with your PCP in one week after discharge. Please follow up with neurologist in 1 week after discharge. Please follow up with geriatric service, in psychiatry service in 1-2 weeks after discharge. Medications at Discharge Discharge Medications: Continue taking these medications: Pyridoxine HCl (Vitamin B-6) 50 MG TABLET 1 Tablet ORAL DAILY Comments: Last Taken:HELD Time: Thiamine HCl (Vitamin B-1) 250 MG TABLET 1 Tablet ORAL As Directed Comments: Last Taken:09/09/17 Time:1000 Rivaroxaban (Xarelto) 20 MG TABLET 1 Tablet ORAL Every night Qty = 30 Instructions: with food Comments: Last Taken:09/09/17 Time:1000 Polyethylene Glycol 3350 (Miralax) 17 GRAM POWD.PACK 1 Packet ORAL DAILY Qty = 2 Instructions: dissolve in water Comments: Last Taken: Time:10:00 AM Levothyroxine Sodium (Levothyroxine Sodium) 100 MCG TABLET 1 Tablet ORAL DAILY Qty = 30 Comments: Last Taken:09/09/17 Time:0700 Sennosides (Senna) 8.6 MG TABLET 2 Tablet ORAL TWICE DAILY Qty = 100 Comments: Last Taken:09/09/17 Time:1000 Olanzapine (Olanzapine) 5 MG TABLET 1 Tablet ORAL TWICE DAILY Qty = 60 Comments: Last Taken:09/09/17 Time:1000 Levothyroxine Sodium (Levoxyl) 88 MCG TABLET 1 Tablet ORAL DAILY Qty = 30 Comments: Last Taken:09/09/17 Time:0700 Mirtazapine (Mirtazapine) 15 MG TABLET 1 Tablet ORAL Every night Qty = 30 Comments: Last Taken:09/08/17 Time:2200 Linaclotide (Linzess) 290 MCG CAPSULE 1 Capsule ORAL DAILY Latanoprost (Xalatan) 0.005 % DROPS 1 Drop Both Eyes Every night Qty = 2 Comments: Last Taken:09/08/17 Time:0000 Gatifloxacin (Zymaxid) 0.5 % DROPS 1 Drop Both Eyes 4 TIMES A DAY Qty = 2 Comments: Last Taken:09/09/17 Time:1200 Difluprednate (Durezol) 0.05 % DROPS 1 Drop Both Eyes 4XDAILY Qty = 5 Comments: Last Taken:09/09/17 Time:1200 Start taking the following new medications: Donepezil HCl (Aricept) 5 MG TABLET 5 Milligram ORAL AT BEDTIME Qty = 30 No Refills Comments: Last Taken:09/08/17 Time:2200 Docusate Sodium (Docusate Sodium) 100 MG CAPSULE 100 Milligram ORAL DAILY Qty = 60 Refills = 1 Comments: Last Taken:09/09/17 Time:1000 Lisinopril (Lisinopril) 5 MG TABLET 1 Tablet ORAL DAILY Qty = 30 No Refills Comments: Last Taken:09/09/17 Time:1000 Atorvastatin Calcium (Lipitor) 80 MG TABLET 1 Tablet ORAL DAILY Qty = 30 No Refills Comments: Last Taken:09/09/17 Time:1000 Aspirin (Aspirin*) 81 MG TAB.CHEW 1 Tablet ORAL DAILY Qty = 30 No Refills Comments: Last Taken:09/09/17 Time:1000 Copies To: Jovanna MYERS,Jeronimo; Nicki MYERS,Mike Centeno; Yola MYERS,Wanda Attending MD Review Statement Documenting Attending: Jennifer Obando MD Other Findings: Discharged in stable condition.
--- NOTE | 2017-09-08 06:36 | PN- Housestaff ---
Yoselin MYERS,Tameka 09/08/17 0636: Subjective Follow-up For: Delirium, hypothyroidism, constipation, stroke Complaints: no complaints Tele-Events Since Last Visit: Sinus rhythm heart rate 95 Subjective: Patient was seen and examined by me at bedside today. No overnight events. Patient is alert and not oriented. Able to follow commands. Denies chest pain, chest pressure, shortness of breath, suicidal ideation. Review of Systems Constitutional: Reports: no symptoms. Cardiovascular: Reports: no symptoms. Respiratory: Reports: no symptoms. Gastrointestinal: Reports: no symptoms. Genitourinary: Reports: no symptoms. Musculoskeletal: Reports: no symptoms. Objective Last 24 Hrs of Vital Signs/I&O Vital Signs Date Time Temp Pulse Resp B/P B/P Pulse O2 O2 Flow FiO2 Mean Ox Delivery Rate 09/08 1425 97.5 78 12 130/60 97 09/08 0921 Room Air Room Air 09/08 0647 98.4 73 20 142/56 98 Room Air Intake & Output 09/08 1600 09/08 0800 09/08 0000 Intake Total 400 120 200 Output Total 650 Balance -250 120 200 Intake, Oral 400 120 200 Number 2 Bowel Movements Output, Urine 650 Patient 94 lb 15.99 oz Weight Physical Exam General Appearance: Alert, Oriented X3, Cooperative, No Acute Distress Cardiovascular: Regular Rate, Normal S1, Normal S2 Lungs: Clear to Auscultation, Normal Air Movement Abdomen: Normal Bowel Sounds, Soft, No Tenderness Neurological: Normal Speech, Strength at 5/5 X4 Ext, Normal Tone, Sensation Intact Extremities: No Cyanosis, No Edema, Normal Pulses Current Medications: Current Medications Sig/Donaldo Start time Last Medication Dose Route Stop Time Status Admin Aspirin 81 MG DAILY 09/07 1000 AC 09/08 PO 0930 Atorvastatin Calcium 80 MG 1700 09/06 1700 AC 09/07 PO 1654 Docusate Sodium 100 MG DAILY 09/04 1611 AC 09/08 PO 0930 Donepezil HCl 5 MG AT BEDTIME 09/060 AC 09/07 PO 2202 Gatifloxacin 1 GTT 0800,1200,1600,2000 09/04 1600 AC 09/08 OPH 1209 Latanoprost 1 GTT AT BEDTIME 09/04 2200 AC 09/07 OPH 2209 Levothyroxine Sodium 0.088 MG DAILY AC 09/05 0700 AC 09/08 PO 0616 Levothyroxine Sodium 0.1 MG DAILY AC 09/05 0700 AC 09/08 PO 0616 Lisinopril 5 MG DAILY 09/07 1000 AC 09/08 PO 0930 Mirtazapine 15 MG QPM 09/04 220 AC 09/07 PO 2202 Moxifloxacin HCl 1 GTT TID 09/04 2200 AC 09/08 OPH 0932 Olanzapine 5 MG BID 09/04 2200 AC 09/08 PO 0931 Polyethylene Glycol 17 GM DAILY 09/04 1611 AC 09/08 PO 0929 Rivaroxaban 20 MG DAILY 09/05 1000 AC 09/08 PO 0930 Senna/Docusate Sodium 2 TAB DAILY PRN 09/04 1615 AC 09/06 PO 0931 Thiamine HCl 100 MG DAILY 09/05 1000 AC 09/08 PO 0930 Last 24 Hrs of Lab/James Results Last 24 Hrs of Labs/Mics: Laboratory Tests 09/08/17623: Anion Gap 11, Estimated GFR > 60, BUN/Creatinine Ratio 21.3 Lines/Diet[facility]Fluids [facility]/Plan Assessment: Patient is a 77-year-old female with significant history of hypothyroidism, recent onset psychotic behavior presented with acute worsening of her mental status in the setting of recent surgery, constipation. Problem list Acute delirium Active suicidal ideation Hyponatremia Stroke Constipation 1. Acute delirium * Patient had acute delirium which is possibly secondary due to hyponatremia [ dehydration], recent cataract surgery, sedation used during surgery, constipation, recent antipsychotic medication. Patient is alert, confused. Cultures negative and electrolytes within normal limits. Patient will followed by psychiatry today. * Abdominal x-ray showed copious amount of stool. After 2 Fleet enema patient had a bowel movement. * patient was seen by neurology yesterday and a EEG was done which was found to be normal. Neurologist wanted ANUSHA scan as an outpatient to rule out any ParkinsONISM. neurology follow-up appreciated * mri head without santiago today showed small lacunar infarct in right parietal region in spite of being on Xarelto. This can be secondary due to chronic hypertension. Neurology advised to continue Xarelto . * Carotid Doppler was negative. Patient had an echocardiogram which showed a normal left ventricle size with an ejection fraction of more than 65% with abnormal relaxation P filling pattern of the left ventricle [stage I diastolic dysfunction]. We will continue aspirin and statin. * Patient is on regular diet and able to swallow. * We will cont lisisnopril 5 mg for high blood pressure. suicidal ideation * No active suicidal ideation. We will continue all and 7, mirtazapine, Donepezil. * Patient can't leave AMA. * continue 1:1 sitter. History of hypothyroidism * Continue levothyroxine 188 g daily Recent cataract surgery * Continue glaucoma/postsurgical eyedrops Plan-psychiatry follow-up, neuro follow-up, cardiology follow-up. Disposition patient may qualify for geriatric psych when she leaves here DVT prophylaxis Continued Xarelto CODE STATUS Full code Problem List: 1. Stroke 2. Hypothyroidism 3. Acute delirium 4. Dementia Pain Ratin Pain Location: none Pain Goal: Remain pain free Pain Plan: cbc,bep Tomorrow's Labs & Rationales: none Jennifer Obando MD 09/08/17 1244: Attending MD Review Statement Attending Statement Attending MD Statement: examined this patient, discuss w/resident/PA/MILIEU COORDINATOR, agreed w/resident/PA/MILIEU COORDINATOR, reviewed EMR data (avail), discussed with nursing, discussed with case mgmt, amended to note Attending Assessment/Plan: Patient seen and examined. Resting comfortably and not in any acute distress. No issues overnight reported by staff. No events on telemetry monitoring. She is not agitated but remains confused to answer some simple questions. Her at the bedside does feel that she has made a little improvement. On examination heart sounds are regular. Lungs are clear to auscultation bilaterally. Abdomen soft and nontender. She has no peripheral edema. Laboratory data shows no significant electrolyte abnormalities. Echocardiogram done. Stage I diastolic dysfunction. No significant valvular heart disease noted. Problems: 1. Acute delirium; resolved. She likely has underlying dementia brought about by the chronic microvascular changes noted on her MRI. 2. Deep vein thrombosis on anticoagulation therapy. Plan: -Patient is medically stable to be discharged home. - who is of advanced age however states he is unable to care for her at home in her current condition. -She will be discharged to [facility] facility for short-term rehabilitation once a bed becomes available. -No need for further telemetry monitoring. -Add lipid panel to her labs done today. If LDL is above goal start patient on statin.
[2017-09-08 06:47] VITALS: BP 142/56
--- NOTE | 2017-09-08 12:08 | ECHOCARDIOGRAM REPORT ---
CHRISTINE GILMORE Age: 77 : 1940 Gender: F Exam Date: 09/07/2017 09:46 Exam Location: [address] [facility] Ht (in): 61 Wt (lb): 95 BSA: 1.36 BP: 152 / 78 Ordering Physician: Elvira Mariee MD Referring Physician: Elvira Mariee MD Technologist: Ben Eason [facility] Room Number: 182-1 Indications: STROKE Rhythm: Sinus Technical Quality: Fair FINDINGS Left Ventricle Normal left ventricular size, wall thickness and systolic function with no obvious regional wall motion abnormalities. The ejection fraction is visually estimated at >65%. Abnormal relaxation filling pattern of the left ventricle for age (stage 1 diastolic dysfunction). Right Ventricle The right ventricle is normal in size and function. Right Atrium The right atrium is normal in size. Left Atrium The left atrium is normal in size. The interatrial septum is intact. Mitral Valve Mild mitral annular calcification. Mitral valve mildly thickened. Trace mitral regurgitation. Aortic Valve Structurally normal aortic valve without significant sclerosis or stenosis. There is aortic regurgitation. Tricuspid Valve Structurally normal tricuspid valve. Trace tricuspid regurgitation. No evidence of pulmonary hypertension. Right ventricular systolic pressure estimated to be within the normal range at 24 mmHg. Pulmonic Valve Pulmonic valve not well visualized. There is no pulmonic regurgitation. Pericardium Normal pericardium without effusion. No pleural effusion. Great Vessels Normal aortic root dimension. Normal size inferior vena cava. CONCLUSIONS Normal left ventricular size, wall thickness and systolic function with no obvious regional wall motion abnormalities. The ejection fraction is visually estimated at >65%. Abnormal relaxation filling pattern of the left ventricle for age (stage 1 diastolic dysfunction). The right ventricle is normal in size and function. The atria are normal in size. Trace mitral regurgitation. Trace tricuspid regurgitation. No evidence of pulmonary hypertension. Uli Azar M.D. (Electronically Signed) Final Date: 08 September 2017 12:07 MEASUREMENTS (Male / Female) Normal Values 2D ECHO LV Diastolic Diameter PLAX 3.9 cm 4.2 - 5.9 / 3.9 - 5.3 cm LV Systolic Diameter PLAX 2.3 cm 2.1 - 4.0 cm LV Fractional Shortening PLAX 41.0 % 25 - 46 % LV Ejection Fraction 2D Teich 72.5 % IVS Diastolic Thickness 0.8 cm LVPW Diastolic Thickness 0.8 cm LV Relative Wall Thickness 0.4 LVOT Diameter 1.7 cm Aortic Root Diameter 2.4 cm LA Systolic Diameter LX 2.0 cm 3.0 - 4.0 / 2.7 - 3.8 cm Ascending Aorta Diameter 2.7 cm DOPPLER AV Peak Velocity 139.0 cm/s AV Peak Gradient 7.7 mmHg AV Mean Velocity 82.9 cm/s AV Mean Gradient 3.0 mmHg AV Velocity Time Integral 27.3 cm LVOT Peak Velocity 80.5 cm/s LVOT Peak Gradient 2.6 mmHg LVOT Mean Velocity 53.2 cm/s LVOT Mean Gradient 1.0 mmHg LVOT Velocity Time Integral 21.7 cm LVOT Stroke Volume 49.3 cm AV Area Cont Eq vti 1.8 cm AV Area Cont Eq pk 1.3 cm MV Peak Velocity 110.0 cm/s MV Peak Gradient 4.8 mmHg MV Mean Velocity 61.0 cm/s MV Mean Gradient 2.0 mmHg Mitral E Point Velocity 78.0 cm/s Mitral A Point Velocity 93.3 cm/s Mitral E to A Ratio 0.8 MV PHT Velocity 81.4 cm/s MV Deceleration [place] 273.0 cm/s MV Pressure Half Time 89.5 ms MV Area PHT 2.5 cm MV Deceleration Time 275.0 ms TR Peak Velocity 217.0 cm/s TR Peak Gradient 18.8 mmHg Right Atrial Pressure 5.0 mmHg Pulmonary Artery Systolic Pressu 23.8 mmHg Right Ventricular Systolic Press 23.8 mmHg PV Peak Velocity 82.7 cm/s PV Peak Gradient 2.7 mmHg PV Mean Velocity 57.7 cm/s PV Mean Gradient 2.0 mmHg PV Velocity Time Integral 19.2 cm
[2017-09-08 14:25] VITALS: BP 130/60
[2017-09-08 22:16] VITALS: BP 150/62
[2017-09-09] VITALS: BP 142/86
[2017-09-09 07:04] VITALS: BP 144/68
--- NOTE | 2017-09-09 07:31 | PN- Housestaff ---
Yoselin MYERS,Tameka 09/09/17 0731: Subjective Follow-up For: Acute delirium, stroke him a hypothyroidism, constipation Complaints: no complaints Subjective: Patient was seen at bedside today. Patient is by the bedside. She had a good night sleep. No overnight events. She is alert oriented 1. She follows commands and speaks very slowly. She denies chest pain, chest pressure, nausea, vomiting, abdominal pain Review of Systems Constitutional: Reports: no symptoms. Cardiovascular: Reports: no symptoms. Respiratory: Reports: no symptoms. Gastrointestinal: Reports: no symptoms. Genitourinary: Reports: no symptoms. Musculoskeletal: Reports: no symptoms. Neurological/Psychological: Reports: no symptoms. Objective Last 24 Hrs of Vital Signs/I&O Vital Signs Date Time Temp Pulse Resp B/P B/P Pulse O2 O2 Flow FiO2 Mean Ox Delivery Rate 09/09 0704 97.7 76 12 144/68 96 Room Air 09/09 0000 142/86 09/08 2216 98.1 82 18 150/62 98 Room Air 09/08 1425 97.5 78 12 130/60 97 09/08 0921 Room Air Room Air Intake & Output 09/09 1600 09/09 0800 09/09 0000 Intake Total 120 120 Output Total 400 450 Balance -280 -330 Intake, Oral 120 120 Output, Urine 400 450 Physical Exam General Appearance: Alert, Cooperative, No Acute Distress Skin: No Rashes HEENT: PERRLA Cardiovascular: Regular Rate, Normal S1, Normal S2, No Murmurs Lungs: Clear to Auscultation Abdomen: Normal Bowel Sounds, Soft, No Tenderness Neurological: Normal Speech, Strength at 5/5 X4 Ext, Normal Tone Extremities: No Edema Current Medications: Current Medications Sig/Donaldo Start time Last Medication Dose Route Stop Time Status Admin Aspirin 81 MG DAILY 09/07 1000 AC 09/08 PO 0930 Atorvastatin Calcium 80 MG 1700 09/06 1700 AC 09/08 PO 1638 Bisacodyl 10 MG ONCE ONE 09/09 0800 DC AK 09/09 0801 Docusate Sodium 100 MG DAILY 09/04 1611 AC 09/08 PO 0930 Donepezil HCl 5 MG AT BEDTIME 09/06 2200 AC 09/08 PO 2155 Gatifloxacin 1 GTT 0800,1200,1600,2000 09/04 1600 AC 09/08 OPH 2005 Latanoprost 1 GTT AT BEDTIME 09/04 2200 AC 09/08 OPH 2155 Levothyroxine Sodium 0.088 MG DAILY AC 09/05 0700 AC 09/09 PO 0503 Levothyroxine Sodium 0.1 MG DAILY AC 09/05 0700 AC 09/09 PO 0503 Lisinopril 5 MG DAILY 09/07 1000 AC 09/08 PO 0930 Mirtazapine 15 MG QPM 09/04 2200 AC 09/08 PO 2155 Moxifloxacin HCl 1 GTT TID 09/04 220 AC 09/08 OPH 2155 Olanzapine 5 MG BID 09/04 2200 AC 09/08 PO 2203 Polyethylene Glycol 17 GM DAILY 09/04 1611 AC 09/08 PO 0929 Rivaroxaban 20 MG DAILY 09/05 1000 AC 09/08 PO 0930 Senna/Docusate Sodium 2 TAB DAILY PRN 09/04 1615 AC 09/06 PO 0931 Thiamine HCl 100 MG DAILY 09/05 1000 AC 09/08 PO 0930 Lines/Diet/Fluids Restraints: library monitor Assessment/Plan Assessment: Patient is a 77-year-old female with significant history of hypothyroidism, recent onset psychotic behavior presented with acute worsening of her mental status in the setting of recent surgery, constipation. Problem list Acute delirium Active suicidal ideation Hyponatremia Stroke Constipation Mild protein energy malnutrition 1. Acute delirium * Patient had acute delirium which is possibly secondary due to hyponatremia [ dehydration], recent cataract surgery, sedation used during surgery, constipation, recent antipsychotic medication. Patient is alert, oriented 1. Cultures negative and electrolytes within normal limits. Patient will followed by psychiatry today. * patient was seen by neurology and a EEG was done which was found to be normal. Neurologist wanted ANUSHA scan as an outpatient to rule out any ParkinsONISM. neurology follow-up appreciated * mri head without santiago today showed small lacunar infarct in right parietal region in spite of being on Xarelto. This can be secondary due to chronic hypertension. Neurology advised to continue Xarelto. * Carotid Doppler was negative. Patient had an echocardiogram which showed a normal left ventricle size with an ejection fraction of more than 65% with abnormal relaxation filling pattern of the left ventricle [stage I diastolic dysfunction]. We will continue aspirin and statin. * Patient is on regular diet and able to swallow. * We will cont lisisnopril 5 mg for high blood pressure. suicidal ideation * No active suicidal ideation. We will continue Zyprexa, mirtazapine, Donepezil. * Patient can't leave AMA. * continue 1:1 sitter. History of hypothyroidism * Continue levothyroxine 188 g daily Recent cataract surgery * Continue glaucoma/postsurgical eyedrops Constipation * Relieved with senna, MiraLAX. Last bowel movement on 09/07 Patient will have Dulcolax suppository today. Mild protein energy malnutrition [BMI 17.9] * Patient was assessed by nutrition yesterday who suggested to increase the by mouth intake in view of mild protein energy malnutrition. Plan-psychiatry follow-up, neuro follow-up, cardiology follow-up. Disposition patient may qualify for geriatric psych when she leaves here DVT prophylaxis Continued Xarelto CODE STATUS Full code Problem List: 1. Dementia 2. Delirium Pain Ratin Pain Location: none Pain Goal: Remain pain free Pain Plan: tylenol Tomorrow's Labs & Rationales: none Topher MYERS,Jennifer 09/09/17 1039: Attending MD Review Statement Attending Statement Attending MD Statement: examined this patient, discuss w/resident/PA/BOARD FILLER, agreed w/resident/PA/BOARD FILLER, discussed with family, reviewed EMR data (avail), discussed with nursing, discussed with case mgmt, amended to note Attending Assessment/Plan: Patient seen and examined. Resting comfortably not in any acute distress. No issues overnight reported by nursing staff. She appears to be a little more conversational today although her speech is still very slow. She denies any new complaints this morning. On examination she has no focal motor deficit. She is medically stable to be discharged to a residential facility for short-term rehabilitation once a bed is available.
--- NOTE | 2017-09-09 08:17 | Incdntl Nt Psy ---
Incidental Note Notation: I spoke briefly this morning with Dr. Tito Sam, treating psychiatrist, . As Dr. Lambert, motors and controls tester psychiatrist, had discussed with him over the weekend, he had recommended geriatric psychiatry admission, due to probable psychosis. He is agreeable to the plan of STR with geriatric followup, and wouldlike to be kept aware of her progress. Please send a discharge summary from and receiving facilities. [employer] [facility] [address], [place] [address]
[2017-09-09] MEDS ORDERED: LISINOPRIL5 M1 PO (09:55)
[2017-09-09] MEDS ORDERED: LIPITOR80 M1 PO (09:57)
[2017-09-09] MEDS ORDERED: ASPIRIN81 M4 PO (09:57)
[2017-09-09] MEDS ORDERED: ARICEPT5 M1 PO (09:58)
[2017-09-09] MEDS ORDERED: DOCUSATE SODIU100 M3 PO (10:26)
[2017-09-09 11:31] VITALS: BP 144/68
== END 2017-09-09 13:20 | DRG 65 ==
LOC: ERH 16:20 → ERHI 09-04 14:13 → 1NO 09-04 14:13 → 2NB 09-04 14:13 → ENRESERV 09-04 15:01 → ENTRNSPT 09-04 16:53 → EDTRNSPTSTS 09-04 17:00 → EDTRNSPT 09-04 17:00 → 2NB 09-04 17:12 → CMPTRNSPT 09-04 17:20 → 1NO 09-06 17:21 → ENPENDDIS 09-09 11:03 → 1NO 09-09 12:27
PROVIDERS: Internal Medicine; Physician Assistant Medical; Student in an Organized Health Care Education/Training Program
DX: I63.8 Other cerebral infarction (principal); F05 Delirium due to known physiological condition; E44.1 Mild protein-calorie malnutrition; E86.0 Dehydration; R45.851 Suicidal ideations; I48.0 Paroxysmal atrial fibrillation; I82.509 Chronic embolism and thrombosis of unspecified deep veins of unspecified lower extremity; E87.1 Hypo-osmolality and hyponatremia; Z68.1 Body mass index [BMI] 19.9 or less, adult; E03.9 Hypothyroidism, unspecified; K59.09 Other constipation; Z79.01 Long term (current) use of anticoagulants; R32 Unspecified urinary incontinence; F31.9 Bipolar disorder, unspecified; F41.0 Panic disorder [episodic paroxysmal anxiety]
CPT/HCPCS: 1NP; 2NBP; 70551; 36415; 71045; 73130-RT; 74021; 76775; 80307; 81001; 82436; 87086; 93005; 93010; 93306; 95816; 97116-GO; 97161-GP; 97166-GO; 99233; G0463; G0480; J1644; J2250; J3490; V2632

== ENCOUNTER → 2017-10-26 | Day surgery (SDC) | payer OTHER, MEDICARE ==
[~2017-10-26] VITALS: Ht 154.9 cm; Wt 44.9 kg
[~2017-10-26] MED LIST changes: +ARICEPT5 M1 PO; +ASPIRIN81 M4 PO; +DOCUSATE SODIU100 M3 PO; +DUREZOL5 ML OU; +LEVOTHYROXINE75 MCG PO; +LEVOXYL88 MCG PO; +LINZESS290 MC1 PO; +LIPITOR80 M1 PO; +LISINOPRIL5 M1 PO; +MIRTAZAPINE15 M2 PO; +OLANZAPINE5 M2 PO; +XALATAN2.5 ML OU; +ZYMAXID2.5 ML OU
--- NOTE | 2017-10-26 09:59 | Operative Report ---
See Addendum Operative/Inv Procedure Report Surgery Date: 10/26/17 Name of Procedure: Cataract extraction with intraocular lens implantation left eye Pre-Operative Diagnosis: Age-related cataract left eye Post-Operative Diagnosis: Same Estimated Blood Loss: none Surgeon/Merchandise Execution Leader: Ricky MYERS,Santiago Shannon Anesthesia: none Complications: None Operative/Procedure Note Note: Preoperatively the patient was noted to have 20/70 vision in the left eye . The risks, benefits, and alternatives to surgery were discussed at length with the patient. Informed consent was obtained. The patient was brought to the operating room where the left eye was prepped and draped in the normal sterile fashion. A speculum was placed on the left eye with good exposure. A stab incision was made using a paracentesis blade. Intracameral lidocaine was placed. Viscoelastic was used to form the anterior chamber. A clear corneal incision was made using keratome blade. A continuous curvilinear capsulorrhexis was made using a cystotome needle followed by Utrata forceps. There was no extension of the rhexis. Hydrodissection was performed using balanced salt solution. The cataract was removed using a stop and chop technique. Residual cortex was removed using coaxial irrigation and aspiration. The capsule was polished using irrigation and aspiration and the posterior capsule was cleaned using a balanced salt solution jet. There was no residual lens material inside the eye. The capsular bag was reformed using viscoelastic. An intraocular lens [id number] of power 16.5 was verified and confirmed. It was loaded into an injector and injected into the eye. The lens was placed entirely within the capsular bag. Viscoelastic was evacuated using irrigation and aspiration. The wounds were stromally hydrated and the eye filled to physiologic pressure using balanced salt solution. Intracameral cefuroxime was placed. Speculum was removed and a shield was placed on the eye. The patient was brought to the recovery area without incident. Instructions were given to follow-up the next day for routine postoperative care.
== END ==
LOC: STS 01:50
DX: H25.9 Unspecified age-related cataract (principal); E03.9 Hypothyroidism, unspecified; Z86.718 Personal history of other venous thrombosis and embolism; Z79.01 Long term (current) use of anticoagulants; Z79.82 Long term (current) use of aspirin
CPT/HCPCS: J2250; V2632

== ENCOUNTER 2018-02-11 18:44 | Emergency (ER) | payer OTHER, MEDICARE ==
[2018-02-11 19:18] LABS: ABSOLUTE BASOPHIL COUNT 0 /CUMM (0.0-0.2); ABSOLUTE EOSINOPHIL COUNT 0.2 /CUMM (0.0-0.7); ABSOLUTE GRANULOCYTE CT 4.5 /CUMM (1.4-6.5); ABSOLUTE LYMPH COUNT 2.2 /CUMM (1.2-3.4); ABSOLUTE MONOCYTE COUNT 0.8 /CUMM (0.10-0.60); BASOPHIL % 0.4 % (0.0-2.0); GRANULOCYTE % 59.1 % (42.2-75.2); HEMATOCRIT 35.8 % (37-47); MEAN CORPUSCULAR VOLUME 88.4 FL (81.0-99.0); PLATELET COUNT 250 /CUMM (130-400); RBC DISTRIBUTION WIDTH 13.7 % (11.5-14.5); RED BLOOD CELL CT 4.05 /CUMM (4.20-5.40); WHITE BLOOD CELL COUNT 7.6 /CUMM (4.8-10.8)
--- NOTE | 2018-02-11 20:00 | ULTRASOUND REPORT ---
EXAMINATION: US ABDOMEN LIMITED CLINICAL INFORMATION: Right upper quadrant pain.. COMPARISON: CT abdomen pelvis 06/29/2017 TECHNIQUE: Real-time imaging of the right upper quadrant abdominal viscera. Color Doppler exam used. FINDINGS: PANCREAS: Normal. LIVER: Normal. The liver demonstrates normal size, contour and echogenicity. No focal lesion or intrahepatic biliary duct dilatation. GALLBLADDER: There are several small gallstones in the gallbladder. There is no gallbladder wall thickening or pericholecystic fluid. Positive ultrasound Blankenship's sign. COMMON BILE DUCT: Normal in caliber measuring 0.6 cm in diameter. RIGHT KIDNEY: Normal. No hydronephrosis. No renal calculi or focal parenchymal lesions. The kidney measures 8.1 cm in maximum dimension. FREE FLUID: None. IMPRESSION: Cholelithiasis. No acute abnormality of gallbladder wall. There is no bile duct dilatation. Positive ultrasound Blankenship's sign.
--- NOTE | 2018-02-11 21:41 | ED GI/GU/ABDOMINAL COMPLAINT ---
History of Present Illness General Chief Complaint: Abdominal Pain/Flank Pain Stated Complaint: "SHARP ABDOMINAL PAIN" Source: patient Exam Limitations: no limitations Vital Signs & Intake/Output Vital Signs & Intake/Output Vital Signs Date Time Temp Pulse Resp B/P B/P Pulse O2 O2 Flow FiO2 Mean Ox Delivery Rate 02/11 2201 97.7 69 20 148/78 99 Room Air 02/11 2053 97.6 65 18 152/84 98 Room Air 02/117 Room Air 02/12 1852 97.5 73 20 150/78 95 Room Air Allergies Coded Allergies: No Known Allergies (10/22/17) Reconcile Medications Aspirin (Aspirin*) 81 MG TAB.CHEW 1 TAB PO DAILY heart Atorvastatin Calcium (Lipitor) 80 MG TABLET 1 TAB PO DAILY heart Donepezil HCl (Aricept) 5 MG TABLET 5 MG PO AT BEDTIME dementia Latanoprost (Xalatan) 0.005 % DROPS 1 GTT OU QPM BOTH EYES (Reported) Levothyroxine Sodium 75 MCG TABLET 1 TAB PO DAILY THYROID (Reported) Linaclotide (Linzess) 290 MCG CAPSULE 1 CAP PO DAILY GI (Reported) Lisinopril 5 MG TABLET 1 TAB PO DAILY heart Mirtazapine 15 MG TABLET 1 TAB PO QPM ANXIETY/SLEEP (Reported) Olanzapine 5 MG TABLET 0.5 TAB PO BID MENTAL HEALTH (Reported) Pyridoxine HCl (Vitamin B-6) 50 MG TABLET 1 TAB PO DAILY SUPPLEMENT (Reported ) Rivaroxaban (Xarelto) 20 MG TABLET 1 TAB PO QPM DVT (Reported) with food Thiamine HCl (Vitamin B-1) 250 MG TABLET 1 TAB PO DAILY SUPPLEMENT (Reported) Tylenol With Codeine (Tylenol With Codeine #3 Tablet) 300 MG-30 MG TABLET 1 TAB PO BIDP PRN PAIN SIX...[id number] Triage Note: PER PT PAIN TO RUQ SINCE AM AFTER BREAKFAST BETTER WITH PRESSURE, NO BELCHING, NO N/V/D NO FEVERS NO ASSOC SYMPTOMS Triage Nurses Notes Reviewed? yes ? n Is pt currently ? No Duration: hour(s):, waxing and waning Timing: recent history Location: right upper quadrant Radiation: no radiation Activities at Onset: none HPI: 77 yo woman presents with minimal right upper quadarant discomfort after eating dinner tonight. She notes that she has felt these symptoms before, fleetingly, but tonight, it seemed to persist after dinnier tonight. She ate seafood salad, fudge with dessert. She notes no nausea, vomiting, fever, diarrhea, chest pain, shortness of breath. She is otherwise well. Past History Travel History Traveled to [place] past 21 day No Medical History Any Pertinent Medical History? see below for history Neurological: delerium EENT: cataracts Cardiovascular: NONE Respiratory: PNA Gastrointestinal: NONE Hepatic: NONE Renal: NONE Musculoskeletal: NONE Psychiatric: anxiety, bipolar disease, depression Endocrine: HYPOTHYROID Blood Disorders: NONE Cancer(s): NONE MOLECULAR PATHOLOGIST/Reproductive: NONE History of MRSA: No History of VRE: No History of CDIFF: No Surgical History Surgical History: PARTIAL R HIP Psychosocial History Who do you live with Spouse Services at Home None What is your primary language Slovak Tobacco Use: Never used Family History Family History, If Any: MOTHER Psychotic illness grand mother Psychotic illness Hx Contributory? No Review of Systems Review of Systems Constitutional: Reports: no symptoms. EENTM: Reports: no symptoms. Respiratory: Reports: no symptoms. Cardiovascular: Reports: no symptoms. GI: Reports: no symptoms. Genitourinary: Reports: no symptoms. Musculoskeletal: Reports: no symptoms. Skin: Reports: no symptoms. Neurological/Psychological: Reports: no symptoms. Hematologic/Endocrine: Reports: no symptoms. Immunologic/Allergic: Reports: no symptoms. All Other Systems: Reviewed and Negative Physical Exam Physical Exam General Appearance: well developed/nourished, no apparent distress Head: atraumatic, normal appearance Eyes: Bilateral: normal appearance. Ears, Nose, Throat, Mouth: moist mucous membrane Neck: normal inspection, supple, full range of motion Respiratory: normal breath sounds, chest non-tender, no respiratory distress, quiet respiration, lungs clear Cardiovascular: regular rate/rhythm Gastrointestinal: normal bowel sounds, soft, minimal tenderness to right upper quadrant. no rebound. no guarding. Back: normal inspection, normal range of motion Extremities: normal range of motion Neurologic/Psych: no motor/sensory deficits, awake, alert, oriented x 3 Skin: intact, normal color, warm/dry Core Measures ACS in differential dx? No Sepsis Present: No Sepsis Focused Exam Completed? No Progress Differential Diagnosis: biliary colic, cholecystitis, gastritis, hepatitis Plan of Care: Orders Procedure Date/time Status TROPONIN LEVEL 02/12 1852 Complete LIPASE 02/12 1852 Complete LACTIC ACID 02/12 1852 Complete COMPREHENSIVE METABOLIC PANEL 02/12 1852 Complete CBC WITHOUT DIFFERENTIAL 02/12 1852 Complete EKG 02/11 1846 Active Laboratory Tests 02/11/182151: Lactic Acid Cancelled 02/11/18 1903: Anion Gap 8, Estimated GFR > 60, BUN/Creatinine Ratio 25.6 H, Glucose 107 H, Lactic Acid 1.3, Calcium 9.5, Total Bilirubin 0.2, AST 25, ALT 21, Alkaline Phosphatase 75, Troponin I < 0.01, Total Protein 6.4, Albumin 3.6, Globulin 2.8, Albumin/Globulin Ratio 1.3, Lipase 83, CBC w Diff NO MAN DIFF REQ, RBC 4.05 L, MCV 88.4, MCH 30.0, MCHC 34.0, RDW 13.7, MPV 8.0, Gran % 59.1, Lymphocytes % 28.3, Monocytes % 10.2 H, Eosinophils % 2.0, Basophils % 0.4, Absolute Granulocytes 4.5, Absolute Lymphocytes 2.2, Absolute Monocytes 0.8 H, Absolute Eosinophils 0.2, Absolute Basophils 0 Diagnostic Imaging: Viewed by Me: Ultrasound. Discussed w/RAD: Ultrasound. Radiology Impression: PATIENT: CHRISTINE GILMORE PRESENT AGE: 77 PATIENT ACCOUNT NO: [id number] : 38 LOCATION: [facility] ORDERING PHYSICIAN: Jorje PATTON SERVICE DATE: 02/11/18 EXAM TYPE: US - US -LIMITED ABDOMEN EXAMINATION: US ABDOMEN LIMITED CLINICAL INFORMATION: Right upper quadrant pain.. COMPARISON: CT abdomen pelvis 06/29/2017 TECHNIQUE: Real- time imaging of the right upper quadrant abdominal viscera. Color Doppler exam used. FINDINGS: PANCREAS: Normal. LIVER: Normal. The liver demonstrates normal size, contour and echogenicity. No focal lesion or intrahepatic biliary duct dilatation. GALLBLADDER: There are several small gallstones in the gallbladder. There is no gallbladder wall thickening or pericholecystic fluid. Positive ultrasound Blankenship's sign. COMMON BILE DUCT: Normal in caliber measuring 0.6 cm in diameter. RIGHT KIDNEY: Normal. No hydronephrosis. No renal calculi or focal parenchymal lesions. The kidney measures 8.1 cm in maximum dimension. FREE FLUID : None. IMPRESSION: Cholelithiasis. No acute abnormality of gallbladder wall. There is no bile duct dilatation. Positive ultrasound Blankenship's sign. DICTATED BY : Bret Snowden MD DATE/TIME DICTATED:02/11/181953 ENGINEERING DRAFTER:JOSTIN DATE/TIME TRANSCRIBED:02/11/181953 CONFIDENTIAL, DO NOT COPY WITHOUT APPROPRIATE AUTHORIZATION. <Electronically signed in Other Vendor System> SIGNED BY: Bret Snowden MD 02/11/181999 Initial ED EKG: sinus, no acute change from prior Departure Departure Disposition: HOME OR SELF CARE Condition: Stable Clinical Impression Primary Impression: Abdominal pain Secondary Impressions: Biliary colic Referrals: Samuels Frankie MYERS (PCP/Family) Departure Forms: Customer Survey General Discharge Information Prescriptions: Current Visit Scripts Tylenol With Codeine (Tylenol With Codeine #3 Tablet) 1 TAB PO BIDP PRN PAIN #6 TAB SIX...[id number] Comments 02/11/18, 22:05pm...discussed at length... she is pain free at present... labs benign... gall stones noted on ct scan... pt advocated to have low fat diet... pt referred to general surgery.
[2018-02-11 22:01] VITALS: BP 148/78
[2018-02-11] MEDS ORDERED: TYLENOL WITH C1 EACH PO (22:04)
== END 2018-02-11 22:23 ==
LOC: ERH 18:44
PROVIDERS: Physician Assistant Medical
DX: K80.50 Calculus of bile duct without cholangitis or cholecystitis without obstruction (principal); R10.11 Right upper quadrant pain; E03.9 Hypothyroidism, unspecified
CPT/HCPCS: 93005; 93010